=== PATIENT | female | born 1960 | race Caucasian/White ===

== ENCOUNTER 2024-08-25 13:36 | Inpatient (IN) | payer MEDICAID, SELFPAY ==
[2024-08-25 13:56] VITALS: BP 137/98; PULSE 90; RESP 20; TEMP 36.6; O2SAT 93; BMI 29.0
--- NOTE | 2024-08-25 14:32 | XR_ITS ---
Examination: Abdomen sonogram, Limited Date and time of exam: August 25, 2024 1441 hours INDICATIONS: Epigastric pain nausea vomiting beginning today Technique: Real-time esteban scale transabdominal sonographic images of the upper abdomen obtained. Findings: Multiple gallstones, the largest 19 mm Gallbladder sludge Gallbladder wall 0.3 cm no edema Common bile duct 0.2 cm Pancreatic head 3.0 cm Liver 19.4 cm benign cysts, lobular contour fatty infiltration no solid liver lesions Normal hepatopedal portal venous flow Patent IVC IMPRESSION: Cholelithiasis, negative for cholecystitis Hepatomegaly, suspect primary hepatocellular disease
--- NOTE | 2024-08-25 14:34 | EDRME_ITS ---
Rapid Medical Screening Exam [facility] Arrival date/time: 08/25/24 13:36 64-year-old female with no known medical history presents to the emergency room with a chief complaint of chest pain epigastric pain and right upper quadrant pain x 2 days. Patient states has been vomiting and this morning was waking up by her chest pain. I have greeted and performed a focused initial assessment of this patient. A comprehensive ED assessment and evaluation of the patient, analysis of all test results, and completion of the medical decision making process will be conducted by additional ED providers. Chief Complaint: Flu Like Symptoms Time Seen by Provider: 08/25/24 13:55 Vital signs: Vital Signs Temperature 97.8 F 08/25/24 13:56 Pulse Rate 90 08/25/24 13:56 Respiratory Rate 20 08/25/24 13:56 Blood Pressure 137/98 H 08/25/24 13:56 Pulse Oximetry (%) 93 L 08/25/24 13:56 Oxygen Delivery Method Room Air 08/25/24 13:56 Vital signs reviewed by provider: Yes
--- NOTE | 2024-08-25 14:35 | XR_ITS ---
Examination: PA lateral chest 2 views TECHNIQUE: Upright PA lateral chest 2 views Exam date and time: August 25, 2024 1533 hours INDICATIONS: Smoking history 50 years with vomiting yesterday. FINDINGS: Normal heart size Accentuation bronchovascular markings. No lobar pneumonia Prominent right paratracheal region Moderate osteopenia IMPRESSION: Prominent right paratracheal region Consider CT chest post intravenous contrast follow-up to exclude right mediastinal lymphadenopathy
[2024-08-25 15:27] LABS: Collection Type, Urine Clean Catch
[2024-08-25] MEDS: ONDANSETRON ODT 4 MG TABRAP PO (15:54)
[2024-08-25] MEDS: HYDROcodone/APAP 5/325 TABLET 1 TAB PO (15:55)
[2024-08-25] MEDS: MG HYD/AL HYD/SIME (Maalox Reg) SUSP 30 ML UDC PO (15:55)
[2024-08-25 15:57] LABS: Bacteria,Urine Rare; Bilirubin,Urine 2+ (Negative); Blood,Urine Negative (Negative); Color,Urine Drk-Yellow (Lt Yel-Yel); Glucose, Urine Trace (Negative); Ketones,Urine 2+ (Negative); Leukocyte Esterase,Urine Negative (Negative); Nitrite,Urine Negative (Negative); Protein,Urine 1+ (Neg - Trace); RBC,Urine 2 /hpf (0-3); Specific Gravity,Urine 1.026 (1.001-1.035); Squamous Epithelial Cell,Urine 1 /hpf (0-5); WBC,Urine 1 /hpf (0-5)
[2024-08-25 16:25] LABS: Clarity,Urine Hazy (Clear/Hazy)
[2024-08-25 16:27] LABS: Basophils % (Auto) 0 % (0-2.5); Eosinophils % (Auto) 0 % (0-10); Hematocrit 52.9 % (36.0-46.0); Hemoglobin 18.2 g/dL (12.0-16.0); Immature Granulocytes % (Auto) 0 % (0-0); Immature Granulocytes Auto 0.04 Thou/mm3 (0.00-0.00); Lymphocytes % (Auto) 11 % (10-50); Mean Corpuscular HGB Conc 34.4 g/dl (31.0-37.0); Mean Corpuscular Hemoglobin 32.3 pg (25.0-35.0); Mean Corpuscular Volume 94 fL (80-100); Monocytes # (Auto) 0.4 Thou/mm3 (0.0-0.8); Monocytes % (Auto) 4 % (0-12); Neutrophils % (Auto) 85 % (37-80); Nucleated Red Blood Cell % 0 /100 WBC (0); Platelet Count 229 Thou/mm3 (140-440); RDW Standard Deviation 51.3 fL (36.4-46.3); Red Blood Count 5.64 Miln/mm3 (4.00-5.20); White Blood Count 9.5 Thou/mm3 (3.6-11.0)
[2024-08-25 16:46] LABS: B-Type Natriuretic Peptide 26 pg/mL (0-100)
[2024-08-25 16:55] LABS: Alanine Aminotransferase 471 U/L (10-49); Albumin, Serum 4.8 gm/dL (3.4-4.8); Albumin/Globulin Ratio 1.7 (1.2-2.2); Alkaline Phosphatase 186 U/L (46-116); Anion Gap 7 (7-16); Aspartate Amino Transferase 451 U/L (0-34); BUN/Creatinine Ratio 29 Ratio (12-20); Bilirubin,Total 2.1 mg/dL (0.3-1.2); Blood Urea Nitrogen 26 mg/dL (9-23); Carbon Dioxide 30.1 mMol/L (20.0-31.0); Chloride 102 mMol/L (98-107); Creatinine (Component) 0.9 mg/dL (0.6-1.3); Estimated Creatinine Clearance 70.3 mL/min (>60); Globulin 2.8 gm/dL (2.3-3.5); Glucose 120 mg/dL (74-106); Lipase 1392 U/L (12-53); Osmolality,Calculated 283 (275-295); Sodium 139 mMol/L (136-145); Total Protein 7.6 gm/dL (5.7-8.2); Troponin I < 0.002 ng/mL (0.0-0.045); eGFR > 60 See Note
--- NOTE | 2024-08-25 18:18 | XR_ITS ---
Examination: CT abdomen with intravenous contrast CT pelvis with intravenous contrast 2-D coronal reconstructions 2-D sagittal reconstructions Date and time of exam:August 25, 2024 1018 hrs. Indications: Vomiting abdominal pain beginning 2 days ago. CTDI: vol (mGy) 10.14 DLP: (mGycm) 594 Technique: Multiple axial sections of the abdomen and pelvis have been obtained. 64 slice high-resolution scanner used. 3 mm axial sections have been obtained, post intravenous injection 60 cc Isovue-370 2-D sagittal, coronal reconstructions obtained. Low dose protocols were performed. One or more of the following dose reduction techniques were used; automated exposure control, adjustment of the mA and/or KV according to patient size, use of iterative reconstruction technique. Findings: Multiple benign liver cysts Spleen is not enlarged Cholelithiasis Gallbladder wall appears mildly thickened Suspicious for mild edema surrounding the pancreas Multiple small renal cysts No hydronephrosis Abdominal aortic calcification no aneurysmal dilatation No pericecal inflammatory change Irregular uterine fundus with multiple uterine masses Urinary bladder intact Moderate osteopenia Impression: Cholelithiasis Gallbladder wall appears thickened Suspicious for mild pancreatitis, consider MRCP follow-up Recommend pelvic sonography follow-up to assess multiple uterine fundal masses
[2024-08-25 19:15] LABS: Cardiac Risk Estimate 1.9 RATIO (3.7-5.6); Cholesterol 217 mg/dL (132-200); HDL Cholesterol 117 mg/dL (40-60); LDL Cholesterol,Calculated 79 mg/dL (0-130); Triglycerides 105 mg/dL (30-150)
[2024-08-25 20:10] VITALS: BP 132/87; PULSE 93; RESP 18; O2SAT 95
[2024-08-25] MEDS: HYDROmorphone INJ 2 MG/ML VIAL 1 MG IVP (21:08)
[2024-08-25] MEDS: SODIUM CHLORIDE 0.9% 1000 ML 1,000 ML 999 ML IV (21:09)
--- NOTE | 2024-08-25 21:16 | PD.EDABDPN ---
ED Abdominal Pain RME/HPI General Chief Complaint: Flu Like Symptoms Stated complaint: Cough, vomiting, chest pain Time seen by provider: 08/25/24 13:55 Arrival date/time: 08/25/24 13:36 RME / HPI RME / HPI narrative: 64-year-old female patient with no significant medical history, except for chronic smoking, came in for evaluation regarding epigastric pain. Onset of symptoms since 2 days, it comes and goes getting worse this morning, severity severe, associated with vomiting. Pain radiates to the chest. Patient denies any fever denies any diarrhea constipation denies any other complaints no medication was taken prior to arrival. Related Data Previous Rx's ?Medication ?Instructions ?Recorded hydrocodone 5 mg-acetaminophen 325 1 tab PO Q8H Cellulitis #10 tabs 02/23/21 mg tablet methylprednisolone 4 mg tablets in See Rx Instructions .Route 02/23/21 a dose pack (Medrol (Caleb)) .COMPLEX #21 tabs clindamycin HCl 300 mg capsule 300 mg PO TID #21 caps 10/01/23 tramadol 50 mg tablet 50 mg PO TID PRN pain #20 tabs 10/01/23 Allergies Allergy/AdvReac Type Severity Reaction Status Date / Time No Known Allergies Allergy Verified 08/25/24 13:43 Review of Systems Review of Systems Narrative Review of Systems: Review of system reviewed and within normal limits except mentioned in HPI Course Course Course Narrative: VITAL SIGNS: Reviewed. GENERAL APPEARANCE: Alert and interactive, follows commands, no acute distress, HEAD AND FACE: Non-traumatic. ENT: PERRL, pink conjunctivitis, eyelid no trauma, Mucous membrane moist. NECK: Supple, nontender, no nuchal rigidity. CHEST: No tenderness, no crepitus, no paradoxical movement, no retractions. LUNGS: Clear, well ventilated, symmetric, no rales, no wheezing, no ronchi, no stridor, good breath sounds bilaterally. HEART: Regular rate, regular rhythm, no murmur, no gallops. ABDOMEN: Soft, positive bowel sounds, nondistended, no guarding, right upper quadrant tenderness, no rebound, no masses, RECTAL: Deferred. GENITAL: Deferred. NEUROLOGICAL: Gross motor function intact sensory function intact, Appropriate for age. MUSCULOSKELETAL: low back nontender, full range of motion. EXTREMITIES: Nontender, full range of motion. SKIN: Color pink, dry, no rash, no lacerations, no abrasions, no contusions. LYMPHATICS: Deferred. Quality Measures none Orders Category Date Time Status Bedside COVID-19 Antigen Test NOW Care 08/25/24 14:35 Active Bedside Influenza A&B Antigen Test NOW Care 08/25/24 14:35 Completed COVID-19 Screening Questionnaire NOW Care 08/26/24 11:[address] Screening NOW Care 08/25/24 18:18 Active Decision to Admit X1 Care 08/26/24 11:41 Active EKG (ED ONLY) *Do not use* NOW Care 08/25/24 13:45 Completed MRI Screening NOW Care 08/25/24 21:14 Active NPO NOW Care 08/26/24 06:49 Active Diet NPO (NOW) Diet 08/26/24 06:[address] abdomen pelvis w con Stat Exams 08/25/24 18:18 Completed EKG (ED Only) Stat Exams 08/25/24 13:45 Ordered MR MRCP Stat Exams 08/26/24 Completed US gall bladder Stat Exams 08/25/24 14:32 Completed XR chest 2V Stat Exams 08/25/24 14:35 Completed BNP [B-Type Natriuretic Peptide] Stat Lab 08/25/24 16:10 Completed CBC Stat Lab 08/25/24 16:10 Completed CMP [Comprehensive Metabolic Panel] Stat Lab 08/25/24 16:10 Completed Lipase Stat Lab 08/25/24 16:10 Completed Lipid Panel Stat Lab 08/25/24 16:10 Completed Troponin I Stat Lab 08/25/24 16:10 Completed UA [Urinalysis] Stat Lab 08/25/24 15:08 Completed Urine Culture Stat Lab 08/25/24 15:08 Received HYDROcodone*/APAP 5/325 [[place] 5/325] Med 08/25/24 14:32 Discontinued 1 tab PO X1 ONE HYDROmorphone INJ [Dilaudid Inj] Med 08/25/24 20:58 Discontinued 1 mg IVP X1 ONE HYDROmorphone INJ [Dilaudid Inj] Med 08/26/24 04:59 Discontinued 1 mg IVP X1 ONE Ketorolac Inj [Toradol Inj] Med 08/26/24 00:32 Discontinued 30 mg IVP X1 ONE Morphine Inj Med 08/26/24 00:32 Discontinued 4 mg IVP X1 ONE Morphine Inj Med 08/26/24 09:19 Discontinued 4 mg IVP X1 ONE Ondansetron Inj [Zofran Inj] Med 08/26/24 00:32 Discontinued 4 mg IV X1 ONE Ondansetron Inj [Zofran Inj] Med 08/26/24 09:19 Discontinued 4 mg IV X1 ONE Ondansetron Odt [Zofran Odt] Med 08/25/24 14:32 Discontinued 4 mg PO X1 ONE Piper/Tazo 3.375 gm [Zosyn] Med 08/26/24 06:00 Active 3.375 gm in 50 ml IV Q8HR Piper/Tazo 3.375 gm [Zosyn] Med 08/25/24 21:30 Discontinued 3.375 gm in 50 ml IV X1 Sodium Chloride 0.9% 1000 ml [Ns] 1,000 ml Med 08/26/24 06:48 Active IV 125 mls/hr Sodium Chloride 0.9% 1000 ml [Ns] 1,000 ml Med 08/25/24 20:58 Discontinued IV 999 mls/hr mg Hyd/Al Hyd/Fabien Susp [Maalox Susp] Med 08/25/24 14:32 Discontinued 30 ml PO X1 ONE Vital Signs Vital signs: Vital Signs Temperature 97.8 F 08/25/24 13:56 Pulse Rate 90 08/25/24 13:56 Respiratory Rate 20 08/25/24 13:56 Blood Pressure 137/98 H 08/25/24 13:56 Pulse Oximetry (%) 93 L 08/25/24 13:56 Oxygen Delivery Method Room Air 08/25/24 13:56 Abdominal Pain [facility] Narrative [facility] Narrative:: 64-year-old female patient with no significant medical history, except for chronic smoking, came in for evaluation regarding epigastric pain. Onset of symptoms since 2 days, it comes and goes getting worse this morning, severity severe, associated with vomiting. Pain radiates to the chest. Patient denies any fever denies any diarrhea constipation denies any other complaints no medication was taken prior to arrival. Laboratory workup is significant for lipase of 1392, CBC no leukocytosis, CMP significant for 2.1 total bili, AST of 451, ALT of 471, alkaline phos of 186. Lipid profile unremarkable. Urinalysis no UTI ultrasound the gallbladder showed cholelithiasis negative for cholecystitis. CT scan of the abdomen pelvis showed Cholelithiasis Gallbladder wall appears thickened Suspicious for mild pancreatitis, consider MRCP follow-up Recommend pelvic sonography follow-up to assess multiple uterine fundal masses MRCP showed Cholelithiasis, negative for cholecystitis No common hepatic or common bile duct stones Mild acute pancreatitis Patient received IV fluids for hydration, IV Zosyn, and multiple rounds of morphine and Dilaudid and [place]. Currently patient still having pain, 5 out of 10. No fever noted in the ED for the last 21 hours. Spoke with hospitalist, who admitted the patient. Patient data External records reviewed:: None Clinical information provided by:: patient Social determinants that could affect healthcare access:: none Patient has the following chronic illnesses:: None How is presenting disease/condition affected by chronic disease/condition?: no chronic disease Evaluation data The following diagnostics were reviewed and interpreted by me:: lab results and radiology exam(s) Lab and/or radiology exams considered but not ordered:: None Interpretation Summary: See results in MDM, EKG shows sinus rhythm, ventricular rate of 86 bpm, no ST segment elevation or depression noted. Medications / Prescriptions Medications or Prescriptions considered but not ordered:: None Medication administrations:: Medication Administration History Piperacillin/Tazobactam/Dextrose (Zosyn) 3.375 gm in 50 mls @ 12.5 mls/hr IV Q8HR [id number] Stop: 09/02/24 05:59 Last Infusion: 08/26/24 10:26 Dose: Infused Documented By: Admin: 08/26/24 06:41 Dose: 12.5 mls/hr Documented By: EF Sodium Chloride (Ns) 1,000 mls @ 125 mls/hr IV .Q8H ONE Stop: 08/26/24 14:47 Last Infusion: 08/26/24 10:09 Dose: 0 mls/hr Documented By: Admin: 08/26/24 09:33 Dose: 125 mls/hr Documented By: DB Discontinued Medications Hydrocodone Bitart/Acetaminophen (Hydrocodone/Apap 5/325 Tablet) 1 tab PO X1 ONE Stop: 08/25/24 14:33 Last Admin: 08/25/24 15:55 Dose: 1 tab Documented By: OA Al Hydrox/Mg Hydrox/Simethicone (Mg Hyd/Al Hyd/Fabien (Maalox Reg) Susp 30 Ml Udc) 30 ml PO X1 ONE Stop: 08/25/24 14:33 Last Admin: 02/14/25 15:55 Dose: 30 ml Documented By: OA Hydromorphone HCl (Hydromorphone Inj 2 Mg/Ml Vial) 1 mg IVP X1 ONE Stop: 08/25/24 20:59 Last Admin: 08/25/24 21:08 Dose: 1 mg Documented By: TC Hydromorphone HCl (Hydromorphone Inj 2 Mg/Ml Vial) 1 mg IVP X1 ONE Stop: 08/26/24 05:00 Last Admin: 08/26/24 05:32 Dose: 1 mg Documented By: EF Sodium Chloride (Ns) 1,000 mls @ 999 mls/hr IV .Q1H1M ONE Stop: 08/25/24 21:58 Last Infusion: 08/25/24 22:10 Dose: Infused Documented By: Admin: 08/25/24 21:09 Dose: 999 mls/hr Documented By: TC Piperacillin/Tazobactam/Dextrose (Zosyn) 3.375 gm in 50 mls @ 100 mls/hr IV X1 ONE Stop: 08/25/24 21:59 Last Infusion: 08/25/24 23:08 Dose: Infused Documented By: Admin: 08/25/24 22:38 Dose: 100 mls/hr Documented By: EF Ketorolac Tromethamine (Ketorolac Inj 30 Mg/Ml Vial) 30 mg IVP X1 ONE Stop: 08/26/24 00:33 Last Admin: 08/26/24 00:52 Dose: 30 mg Documented By: EF Morphine Sulfate (Morphine Sulf Inj 10 Mg/Ml Vial) 4 mg IVP X1 ONE Stop: 08/26/24 00:33 Last Admin: 08/26/24 00:52 Dose: 4 mg Documented By: EF Morphine Sulfate (Morphine Sulf Inj 10 Mg/Ml Vial) 4 mg IVP X1 ONE Stop: 08/26/24 09:20 Last Admin: 08/26/24 09:30 Dose: 4 mg Documented By: DB Comments: Ondansetron HCl (Ondansetron Odt 4 Mg Tabrap) 4 mg PO X1 ONE; Protocol Stop: 08/25/24 14:33 Last Admin: 08/25/24 15:54 Dose: 4 mg Documented By: OA Ondansetron HCl (Ondansetron Inj 2 Mg/Ml Inj 2 Ml) 4 mg IV X1 ONE; Protocol Stop: 08/26/24 00:33 Last Admin: 08/26/24 00:52 Dose: 4 mg Documented By: EF Ondansetron HCl (Ondansetron Inj 2 Mg/Ml Inj 2 Ml) 4 mg IV X1 ONE; Protocol Stop: 08/26/24 09:20 Last Admin: 08/26/24 09:29 Dose: 4 mg Documented By: DB IV fluids, IV Dilaudid IV morphine Marengo and Zofran IV Zosyn Toradol Consultations Consultation(s) initiated? (list below): No Diagnosis Differential diagnosis abdominal pain: abdominal pain, diverticulitis and pancreatitis Most likely diagnosis given after review of the tests above:: Gallstone pancreatitis acute Admission Indicated Admission indicated?: indicated Explain why admission is indicated or not indicated:: For further management Admission Request Was there a request for admission?: Yes Admission Attestation Admission request attestation: Discussed case with [Dr. Hansen] from Hospitalist service regarding admission. Discussed patients ED course, exam findings, labs, and radiology results. The Hospitalist [agrees] to accept the patient for admission. Disposition Plan Disposition Plan: Admit Discharge Plan Plan Patient Disposition: Admit Acute Care w/in Hospital Disposition Comment: Stable Prescriptions/Referrals Prescriptions/Med Rec: No Action hydrocodone-acetaminophen 5-325 mg tablet 1 tab PO Q8H MDD 3 tabs Qty: 10 0RF methylprednisolone [Medrol (Caleb)] 4 mg tablets,dose pack See Rx Instructions .ROUTE .COMPLEX Qty: 21 0RF Rx Instructions: 1 dose pack as directed tramadol 50 mg tablet 50 mg PO TID PRN (Reason: pain) Qty: 20 0RF clindamycin HCl 300 mg capsule 300 mg PO TID Qty: 21 0RF Referrals: Pablo Alvarez PA-C [Primary Care Provider] - In 1 week Problem List Clinical Impression: Acute gallstone pancreatitis Patient/Caregiver Discharge Instructions Print Language: Swedish Stand Alone Forms: Luciana Award Info., Patient Portal Info Letter
[2024-08-25] MEDS: PIPER/TAZO 3.375 GM 3.375 GM/50 ML BAG IV (22:38)
--- NOTE | 2024-08-25 23:19 | EDNOTE_ITS ---
Emergency Room Addendum <Eli Moore - Last Filed: 08/26/24 03:28> Addendum Narrative: I took over the care from Mehran Bernardo NP at 11 PM on 08/25/2024, see his notes for complete H&P and ED course. I reviewed all diagnostic test results. Patient received Morphine, Zofran, and Toradol due to her abdominal pain. Patient remained clinically stable throughout my shift. At 0600, care is transferred to Dr. Giles pending [facility]. <Hernandez Luis MD - Last Filed: 08/26/24 05:27> Addendum Narrative: I took over the care from Mehran Bernardo NP at 11 PM on 08/25/2024, see his notes for complete H&P and ED course. Patient received Morphine, Zofran, Toradol, and Dilaudid when she needed more help. Otherwise, patient remained clinically stable throughout my shift. At 0600 on 08/26/2024, care is transferred to Dr. Giles pending [facility]. Hernandez Luis MD
[2024-08-26] VITALS (8 sets, daily range): BP systolic 115–142; BP diastolic 81–94; PULSE 90–100; RESP 15–24; TEMP 36.3–36.9; O2SAT 88–98; BMI 30.1; BMI 29.0
--- NOTE | 2024-08-26 | XR_ITS ---
MRI abdomen, without contrast. MRCP Date and time of exam: August 24, 2024 at 0802 hrs. Indications: Abdominal pain nausea vomiting beginning 2 days ago, with elevated total bilirubin Technique: Multiple axial and coronal images of the abdomen have been obtained with the Siemens 1.5T MRI scanner. Images obtained included T1 weighted transverse images, T2-weighted transverse images, T2-weighted transverse images fat-suppressed, T2 weighted haste fat suppressed transverse images, T1 weighted images, in and out of phase images, T2-weighted coronal images, breath hold, T2 weighted haze coronal images as well as T2 weighted coronal thick slab images, MRCP. Findings: Multiple liver cysts Multiple gallstones No definite gallbladder wall thickening Common bile duct 8 mm Pancreatic duct is not dilated No definite common hepatic or common bile duct stones Mild edema surrounding the pancreas 34 mm upper pole left renal cyst smaller bilateral renal cysts No splenomegaly Aorta normal size Impression: Cholelithiasis, negative for cholecystitis No common hepatic or common bile duct stones Mild acute pancreatitis
[2024-08-26] MEDS: KETOROLAC INJ 30 MG/ML VIAL IVP (00:52)
[2024-08-26] MEDS: ONDANSETRON INJ 2 MG/ML INJ 2 ML 4 MG IV ×3 (00:52→22:28)
[2024-08-26] MEDS: MORPHINE SULF INJ 10 MG/ML VIAL 4 MG IVP ×2 (00:52→09:30)
[2024-08-26] MEDS: HYDROmorphone INJ 2 MG/ML VIAL 1 MG IVP ×4 (05:32→21:50)
[2024-08-26] MEDS: PIPER/TAZO 3.375 GM 3.375 GM/50 ML BAG IV ×3 (06:41→21:50)
--- NOTE | 2024-08-26 06:50 | EDNOTE_ITS ---
Emergency Room Addendum <Cristina Licona - Last Filed: 08/26/24 11:15> Addendum Narrative: 0600: Care assumed from Dr. Luis, the previous shift emergency physician. Past medical, surgical, social and family history reviewed. Vitals and home medications reviewed. I will assume the care of the patient at this time, pending MRCP. Please refer to the emergency department record for history and examination from initial visit.? Physical exam by me shows patient under no acute distress at this time. RADIOLOGY Procedure(s): MR MRCP Accession Number(s): [id number] cc: Mehran Bernardo [employer]; Pablo Alvarez PA-C; Parvez Scherer MD~ MRI abdomen, without contrast. MRCP Date and time of exam: August 24, 2024 at 0802 hrs. Indications: Abdominal pain nausea vomiting beginning 2 days ago, with elevated total bilirubin Technique: Multiple axial and coronal images of the abdomen have been obtained with the Siemens 1.5T MRI scanner. Images obtained included T1 weighted transverse images, T2-weighted transverse images, T2-weighted transverse images fat-suppressed, T2 weighted haste fat suppressed transverse images, T1 weighted images, in and out of phase images, T2-weighted coronal images, breath hold, T2 weighted haze coronal images as well as T2 weighted coronal thick slab images, MRCP. Findings: Multiple liver cysts Multiple gallstones No definite gallbladder wall thickening Common bile duct 8 mm Pancreatic duct is not dilated No definite common hepatic or common bile duct stones Mild edema surrounding the pancreas 34 mm upper pole left renal cyst smaller bilateral renal cysts No splenomegaly Aorta normal size Impression: Cholelithiasis, negative for cholecystitis No common hepatic or common bile duct stones Mild acute pancreatitis Dictated By: Parvez Scherer MD <Alfonso Giles MD - Last Filed: 08/26/24 11:21> Addendum Narrative: 0600: Care assumed from Dr. Luis, the previous shift emergency physician. Past medical, surgical, social and family history reviewed. Vitals and home medications reviewed. I will assume the care of the patient at this time, pending MRCP. Please refer to the emergency department record for history and examination from initial visit.? Physical exam by me shows patient under no acute distress at this time. RADIOLOGY Procedure(s): MR MRCP Accession Number(s): [id number] cc: Mehran Bernardo; Pablo Alvarez PA-C; Parvez Scherer MD~ MRI abdomen, without contrast. MRCP Date and time of exam: August 24, 2024 at 0802 hrs. Indications: Abdominal pain nausea vomiting beginning 2 days ago, with elevated total bilirubin Technique: Multiple axial and coronal images of the abdomen have been obtained with the Siemens 1.5T MRI scanner. Images obtained included T1 weighted transverse images, T2-weighted transverse images, T2-weighted transverse images fat-suppressed, T2 weighted haste fat suppressed transverse images, T1 weighted images, in and out of phase images, T2-weighted coronal images, breath hold, T2 weighted haze coronal images as well as T2 weighted coronal thick slab images, MRCP. Findings: Multiple liver cysts Multiple gallstones No definite gallbladder wall thickening Common bile duct 8 mm Pancreatic duct is not dilated No definite common hepatic or common bile duct stones Mild edema surrounding the pancreas 34 mm upper pole left renal cyst smaller bilateral renal cysts No splenomegaly Aorta normal size Impression: Cholelithiasis, negative for cholecystitis No common hepatic or common bile duct stones Mild acute pancreatitis Dictated By: Parevz Scherer MD 11:20 AM, nurse enmanuelitionella Bernardo is here and volunteered to take the patient back to his service. The patient is signed out to him
--- NOTE | 2024-08-26 08:03 | PC.NURSE ---
member of technical staff at bedside requesting assistance with removing patient jewelry. Nurse assisted with removal of earrings per request of patient. All jewelry placed in cup at bedside. Patient able to sit in wheel chair with no distress.
[2024-08-26] MEDS: SODIUM CHLORIDE 0.9% 1000 ML 1,000 ML 125 ML IV (09:33)
[2024-08-26] MEDS: RINGERS LACTATED 1000 ML 1,000 ML 125 ML IV ×2 (12:39→21:51)
[2024-08-26] MEDS: ENOXAPARIN SOD INJ 40 MG/0.4 ML SYRINGE SC (12:42)
--- NOTE | 2024-08-26 13:01 | XR_ITS ---
Examination: CT chest with intravenous contrast 2-D sagittal and coronal reconstructions Exam date and time: August 26, 2024 1315 hrs. Indications: Prominent right mediastinum on chest x-ray yesterday CTDI:vol (mGy) 12.11 DLP: (mGycm) 457 Technique: Multiple axial sections of the thorax have been obtained. Sections have been obtained, 3 mm slice thickness. Mediastinal and lung density settings have been obtained. Intravenous contrast administered, 60 cc Isovue-370. 2-D sagittal, coronal images obtained. Low dose protocols were performed. One or more of the following dose reduction techniques were used; automated exposure control, adjustment of the mA and/or KV according to patient size, use of iterative reconstruction technique. Findings: 6 mm right thyroid nodule Thoracic aortic calcification no aneurysmal dilatation No pulmonary artery emboli No right mediastinal or other mediastinal lymphadenopathy Atelectasis versus early pneumonia at the lung bases with minimal bilateral pleural fluid Diffuse fatty infiltration throughout the liver with liver cysts Gallstones Mild free fluid in the abdomen No splenic enlargement No pancreatic mass 32 mm left renal cyst 2 mm left renal calculus The common bile duct measures 8 mm Impression: No mediastinal lymphadenopathy Mild pneumonia at the lung bases Cholelithiasis, prominent common bile duct, recommend hepatobiliary sonography follow-up
--- NOTE | 2024-08-26 13:02 | XR_ITS ---
Examination: Transvaginal ultrasound of the pelvis, complete Technique: Transvaginal sonographic images pelvis performed using esteban scale imaging Exam date and time: August 26, 20242022 hrs. Indications: CT pelvis August 25, 2024 multiple uterine fundal masses Findings: Uterus 5.8 x 3.5 x 3.7 cm Endometrial stripe 0.3 cm No uterine mass is confirmed Right ovary 1.5 cm arterial flow Left ovary 2.2 cm arterial flow Impression: . No testicular mass is confirmed
--- NOTE | 2024-08-26 15:48 | PD.RESHP ---
Documentation for date of: 08/26/24 [facility] History of Present Illness Chief complaint: abdominal, pancreatitis History of present illness: Diana Servin is 64 yr female with PMH of schizophrenia, depression, and insomnia. She presented to ED yesterday after experiencing acute abdominal pain that started on morning. Pain had worsened through the day, epigastric pain 10/10, radiated to bilateral abdomen. Pain was remitting in nature and would improve leaning forward. Also was experiencing nausea, vomiting. Patient underwent MRCP which showed Cholelithiasis, no bile duct obstruction. Patient also endorses bloody urine since past 1-2 weeks. Denies any dysuria. In ED, vitals were stable. Labs significant for hemoglobin 18, bilirubin 2.1, AST 451, ALT 471, lipase 1392. Normal WBC (9.5) and normal lacate. MRCP showed stones in the gallbladder but no active obstruction. CT a/p Showed cholelithiasis, gallbladder wall thickening, multiple uterine fundal masses. CT chest negative for any mediastinal LAD, 6 mm right thyroid nodule. Patient admitted for gallstone induced acute pancreatitis. Will start patient on fluids and pain management. PMH: as noted above PSH: none FamHx: non contributory Social: smoke approximately 10 cigarettes/day since 15 years old. Drinks socially. Allergies: NKDA Meds: Lurasidone 30 mg daily, trazodone 30 mg daily Review of Systems Constitutional Constitutional: Reports system reviewed and no additional complaints, except as documented Exam Vital Signs Temp Pulse Resp BP Pulse Ox O2 Del Method O2 Flow Rate 98.4 F 91 18 115/89 H 92 L Nasal Cannula 2 08/26/24 14:12 08/26/24 14:12 08/26/24 14:12 08/26/24 14:12 08/26/24 14:12 08/26/24 14:12 08/26/24 14:12 Narrative Exam General: Well kept, minor distress due to pain, cooperative HEENT: NCAT, No JVD noted. Mucosa moist. Pupils are equal and reactive to light bilaterally Cardiovascular: Normal S1 and S2. Regular rate and rhythm. Respiratory: Prominent inspiratory wheezing auscultated bilaterally, no crackles Abdomen: Soft, tender, not distended, normal bowel sounds. Skin: Warm to touch, dry, no rashes noted Musculoskeletal: No gross injuries. Able to move all 4 extremities. No pitting edema Neuro: Alert and oriented x3. No focal neuro deficits. Psych: Normal affect and mood Results: Labs 08/25/24 16:10 08/25/24 16:10 Labs: Short CBC 08/25/24 Range/Units 16:10 WBC 9.5 (3.6-11.0) Thou/mm3 Hgb 18.2 H (12.0-16.0) g/dL Hct 52.9 H (36.0-46.0) % Plt Count 229 (140-440) Thou/mm3 BMP 08/25/24 16:10 Sodium 139 Potassium 4.0 Chloride 102 Carbon Dioxide 30.1 BUN 26 H Creatinine 0.9 Glucose 120 H Calcium 10.0 Cardiac Enzymes 08/25/24 Range/Units 16:10 Troponin I < 0.002 (0.0-0.045) ng/mL Liver Function 08/25/24 Range/Units 16:10 Total Bilirubin 2.1 H (0.3-1.2) mg/dL AST 451 H (0-34) U/L ALT 471 H (10-49) U/L Alkaline Phosphatase 186 H (46-116) U/L Albumin 4.8 (3.4-4.8) gm/dL Urine 08/25/24 Range/Units 15:08 Urine Color Drk-Yellow A (Lt Yel-Yel) Urine Clarity Hazy (Clear/Hazy) Urine pH 6.0 (5.0-7.0) Ur Specific [place] 1.026 (1.001-1.035) Urine Protein 1+ A (Neg - Trace) Urine Glucose (UA) Trace (Negative) Quality Measures Quality Measures none Medications Home Medications and Allergies Allergies Allergy/AdvReac Type Severity Reaction Status Date / Time No Known Allergies Allergy Verified 08/25/24 13:43 Visit Medications Acetaminophen (Acetaminophen 325 Mg Tablet) 650 mg PO Q6H PRN PRN Reason: Fever >101.5 Stop: 09/25/24 11:36 Acetaminophen (Acetaminophen 325 Mg Tablet) 650 mg PO Q6H PRN PRN Reason: PAIN SCALE 1-3 (mild Stop: 09/25/24 11:36 Hydrocodone Bitart/Acetaminophen (Hydrocodone/Apap 10/325 Tab) 1 tab PO Q4H PRN PRN Reason: PAIN SCALE 4-6 (Moderate Stop: 08/31/24 11:36 Enoxaparin Sodium (Enoxaparin Sod Inj 40 Mg/0.4 Ml Syringe) 40 mg SC QDAY VIKKI Stop: 09/09/24 11:44 Last Admin: 08/26/24 12:42 Dose: 40 mg Hydromorphone HCl (Hydromorphone Inj 2 Mg/Ml Vial) 1 mg IVP Q4HR PRN PRN Reason: PAIN SCALE 7-10 (Severe Stop: 08/31/24 12:26 Last Admin: 08/26/24 12:48 Dose: 1 mg Piperacillin/Tazobactam/Dextrose (Zosyn) 3.375 gm in 50 mls @ 12.5 mls/hr IV Q8HR VIKKI Stop: 09/02/24 05:59 Last Admin: 08/26/24 15:34 Dose: 12.5 mls/hr Lactated Ringer's (Lactated Ringers) 1,000 mls @ 125 mls/hr IV .Q8H [facility] Stop: 09/25/24 11:50 Last Admin: 08/26/24 12:39 Dose: 125 mls/hr Magnesium Hydroxide (Milk Of Magnesia Susp 30 Ml Udc) 30 ml PO QDAY PRN; Protocol PRN Reason: CONSTIPATION Stop: 09/25/24 11:36 Discontinued Medications Hydrocodone Bitart/Acetaminophen (Hydrocodone/Apap 5/325 Tablet) 1 tab PO X1 ONE Stop: 08/25/24 14:33 Last Admin: 08/25/24 15:55 Dose: 1 tab Al Hydrox/Mg Hydrox/Simethicone (Mg Hyd/Al Hyd/Fabien (Maalox Reg) Susp 30 Ml Udc) 30 ml PO X1 ONE Stop: 08/25/24 14:33 Last Admin: 08/25/24 15:55 Dose: 30 ml Hydromorphone HCl (Hydromorphone Inj 2 Mg/Ml Vial) 1 mg IVP X1 ONE Stop: 08/25/24 20:59 Last Admin: 08/25/24 21:08 Dose: 1 mg Hydromorphone HCl (Hydromorphone Inj 2 Mg/Ml Vial) 1 mg IVP X1 ONE Stop: 08/26/24 05:00 Last Admin: 08/26/24 05:32 Dose: 1 mg Sodium Chloride (Ns) 1,000 mls @ 999 mls/hr IV .Q1H1M ONE Stop: 08/25/24 21:58 Last Infusion: 08/25/24 22:10 Dose: Infused Piperacillin/Tazobactam/Dextrose (Zosyn) 3.375 gm in 50 mls @ 100 mls/hr IV X1 ONE Stop: 08/25/24 21:59 Last Infusion: 08/25/24 23:08 Dose: Infused Sodium Chloride (Ns) 1,000 mls @ 125 mls/hr IV .Q8H ONE Stop: 08/26/24 14:47 Last Infusion: 08/26/24 10:09 Dose: 0 mls/hr Lactated Ringer's (Lactated Ringers) 1,000 mls @ 150 mls/hr IV .Q6H40M VIKKI Stop: 08/27/24 14:24 Ketorolac Tromethamine (Ketorolac Inj 30 Mg/Ml Vial) 30 mg IVP X1 ONE Stop: 08/26/24 00:33 Last Admin: 08/26/24 00:52 Dose: 30 mg Morphine Sulfate (Morphine Sulf Inj 10 Mg/Ml Vial) 4 mg IVP X1 ONE Stop: 08/26/24 00:33 Last Admin: 08/26/24 00:52 Dose: 4 mg Morphine Sulfate (Morphine Sulf Inj 10 Mg/Ml Vial) 4 mg IVP X1 ONE Stop: 08/26/24 09:20 Last Admin: 08/26/24 09:30 Dose: 4 mg Ondansetron HCl (Ondansetron Odt 4 Mg Tabrap) 4 mg PO X1 ONE; Protocol Stop: 08/25/24 14:33 Last Admin: 08/25/24 15:54 Dose: 4 mg Ondansetron HCl (Ondansetron Inj 2 Mg/Ml Inj 2 Ml) 4 mg IV X1 ONE; Protocol Stop: 08/26/24 00:33 Last Admin: 08/26/24 00:52 Dose: 4 mg Ondansetron HCl (Ondansetron Inj 2 Mg/Ml Inj 2 Ml) 4 mg IV X1 ONE; Protocol Stop: 08/26/24 09:20 Last Admin: 08/26/24 09:29 Dose: 4 mg Assessment & Plan Plan Diana Servin is 64 yr female with PMH of schizophrenia, depression, and insomnia. MRCP showed stones in the gallbladder but no active obstruction. Patient admitted for gallstone induced acute pancreatitis. #Gallstone induced acute pancreatitis #Transaminitis #Hyperbilirubinemia #Elevated lipase Ultrasound gallbladderShowed cholelithiasis, negative for cholecystitis. CT A/P confirmed cholelithiasis with gallbladder thickening. MRCP showed stones in the gallbladder but no active obstruction. Bilirubin 2.1, AST 451, ALT 471, lipase 1392. ?Start maintenance fluid 125 cc/h LR ? 1 mg Dilaudid every 4 hours as needed ? Zofran 4 mg for nausea ? Monitor I's and O's ? Advance diet as tolerated #Uterine mass CT A/P shows irregular uterine fundus with multiple uterine masses Patient states that she is not aware of this finding. Agrees to have further workup done. Hematuria may be attributable to mass. -Transvaginal ultrasound pending #Right thyroid nodule 6mm nodule on CT chest with contrast -follow up outpatient #Hx schizophrenia ? Resume home medication 30 mg lurasidone #Hx depression #Hx insomnia ? 30 mg trazodone Health maintenance: Dispo: Fluids and pain meds for acute pancreatitis, DVT prophylaxis: Lovenox 40 daily CODE STATUS: Full code Diet: Advance as tolerated The patient's management plan was discussed with my attending physician Dr. Medina. Liz Lima, PGY-1 Attending Provider Attestation/Addendum I have discussed and was present for the essential components of the history, physical examination, diagnosis, and treatment plan with the resident. I agree with the patient's care as documented by the resident and amended herein by me. Juan Medina, DO. Patient seen and evaluated this AM. Patient admitted for likely gallstone induced pancreatitis versus alcohol induced however leaning more towards gallstones due to the increased transaminitis and T. bili, the stone is likely already passed considering unremarkable MRCP however gallstones were demonstrated on imaging. Will start the parents into on moderate fluids and pain control. An incidental finding was a uterine fundal mass which the patient was unaware, a TVUS was ordered. Imaging also demonstrated possible peritracheal lymphadenopathy however we did order a CT chest with contrast which did not show such findings. Will reconcile and resume home meds as appropriate and continue to monitor closely. Although this document has been carefully reviewed, there may still be some phonetic and other typographical errors. These errors are purely grammatical due to imperfections in the software program and should not be construed in any way to compromise the substance of the patient's medical care during this visit.
--- NOTE | 2024-08-26 22:22 | PC.NURSE ---
pt complaining of nausea, Dr. Napoles was made aware. New ordres for pt, see MAR.
[2024-08-27] VITALS (9 sets, daily range): BP systolic 102–129; BP diastolic 63–94; PULSE 77–103; RESP 16–24; TEMP 36–36.9; O2SAT 91–98
[2024-08-27] MEDS: HYDROmorphone INJ 2 MG/ML VIAL 1 MG IVP ×5 (02:41→21:17)
[2024-08-27] MEDS: PIPER/TAZO 3.375 GM 3.375 GM/50 ML BAG IV (05:15)
[2024-08-27] MEDS: RINGERS LACTATED 1000 ML 1,000 ML 125 ML IV ×3 (05:15→21:24)
[2024-08-27] MEDS: ONDANSETRON INJ 2 MG/ML INJ 2 ML 4 MG IV (05:15)
[2024-08-27 05:48] LABS: Basophils % (Auto) 0 % (0-2.5); Eosinophils % (Auto) 0 % (0-10); Hematocrit 46.4 % (36.0-46.0); Hemoglobin 15.2 g/dL (12.0-16.0); Immature Granulocytes % (Auto) 0 % (0-0); Immature Granulocytes Auto 0.06 Thou/mm3 (0.00-0.00); Lymphocytes # (Auto) 1.7 Thou/mm3 (1.0-4.8); Lymphocytes % (Auto) 12 % (10-50); Mean Corpuscular HGB Conc 32.8 g/dl (31.0-37.0); Mean Corpuscular Hemoglobin 32.1 pg (25.0-35.0); Mean Corpuscular Volume 98 fL (80-100); Monocytes # (Auto) 0.8 Thou/mm3 (0.0-0.8); Monocytes % (Auto) 6 % (0-12); Neutrophils # (Auto) 11.5 Thou/mm3 (1.8-7.7); Neutrophils % (Auto) 82 % (37-80); Nucleated Red Blood Cell % 0 /100 WBC (0); Platelet Count 231 Thou/mm3 (140-440); RDW Standard Deviation 53.6 fL (36.4-46.3); Red Blood Count 4.73 Miln/mm3 (4.00-5.20)
[2024-08-27 06:47] LABS: Alanine Aminotransferase 184 U/L (10-49); Albumin, Serum 4.2 gm/dL (3.4-4.8); Albumin/Globulin Ratio 1.6 (1.2-2.2); Alkaline Phosphatase 119 U/L (46-116); Anion Gap 11 (7-16); Aspartate Amino Transferase 48 U/L (0-34); BUN/Creatinine Ratio 30 Ratio (12-20); Bilirubin,Total 0.7 mg/dL (0.3-1.2); Blood Urea Nitrogen 18 mg/dL (9-23); Calcium 9.4 mg/dL (8.3-10.6); Calcium (Corrected) 9.4 mg/dL (8.5-10.1); Carbon Dioxide 27.5 mMol/L (20.0-31.0); Chloride 102 mMol/L (98-107); Creatinine (Component) 0.6 mg/dL (0.6-1.3); Estimated Creatinine Clearance 103.4 mL/min (>60); Globulin 2.6 gm/dL (2.3-3.5); Glucose 79 mg/dL (74-106); Osmolality,Calculated 280 (275-295); Potassium 3.6 mMol/L (3.4-5.1); Sodium 140 mMol/L (136-145); Total Protein 6.8 gm/dL (5.7-8.2); eGFR > 60 See Note
[2024-08-27] MEDS: ENOXAPARIN SOD INJ 40 MG/0.4 ML SYRINGE SC (09:13)
[2024-08-27] MEDS: NICOTINE PATCH 14 MG/24 HR PATCH.TD24 TOP (10:02)
[2024-08-27] MEDS: ALBUTEROL/IPRATROPIUM (Duoneb) RT SOL 3 ML NEBU INH (11:22)
[2024-08-27] MEDS: HYDROcodone/APAP 10/325 TAB PO (13:21)
--- NOTE | 2024-08-27 14:14 | ESPR_ITS ---
<Statement entered by Erica Mcdonnell MD - 08/27/24 16:02> I discussed with and supervised my co-resident involved in the care of this patient. I agree with the assessment and plan as documented above. Patient seen at bedside. Still has abdominal pain, tender to touch. Patient willing to try liquid food, requesting 7 up. LFTs improving on labs. Likely passed gallstone. Will continue IVF, advance diet as tolerated, and pain management. Anticipate discharge within 48 hours as advance diet and pain improves. Erica Mcdonnell MD PGY-3 Documentation for date of: 08/27/24 Subjective Subjective Interval history: Patient still having severe amount of pain. Receiving scheduled Rosser and Dilaudid. On maintenance IV fluids. Not yet able to tolerate p.o. Will try to advance to clear liquid diet today. Gave patient a dose of Toradol. LFTs downtrending. UA contaminated. Ultrasound without uterine mass. Exam Vital Signs Temp Pulse Resp BP Pulse Ox O2 Del Method O2 Flow Rate 97.4 F 99 24 H 120/81 92 L Nasal Cannula 2 08/27/24 12:00 08/27/24 12:00 08/27/24 12:00 08/27/24 12:00 08/27/24 12:00 08/27/24 12:00 08/27/24 11:24 Narrative Exam Constitutional: Appears uncomfortable secondary to pain Head: Normocephalic Eyes: no conjunctival injection , symmetrical lids. ENMT: Moist Mucous Membranes CVS: RRR, S1 and S2 present, no murmurs, rubs or gallops . RESP: Rhonchi throughout, no increased work of breathing, on room air GI: Soft, nondistended, extremely tender throughout MSK: No lower extremity edema Skin: Warm to touch, Dry. No bruising. Neuro: Alert and oriented Psych:Appropriate mood and affect. Objective Labs 08/27/24 04:33 08/27/24 04:33 Labs: Laboratory Results - last 24 hr 08/27/24 04:33 WBC 14.0 H D RBC 4.73 Hgb 15.2 D Hct 46.4 H MCV 98 MCH 32.1 MCHC 32.8 RDW Std Deviation 53.6 H Plt Count 231 Neut % (Auto) 82 H Lymph % (Auto) 12 [place] % (Auto) 6 Eos % (Auto) 0 Baso % (Auto) 0 Neut # (Auto) 11.5 H Lymph # (Auto) 1.7 [place] # (Auto) 0.8 Eos # (Auto) 0.0 Baso # (Auto) 0.0 Immature Gran # (Auto) 0.06 H Absolute Nucleated RBC 0.00 Immature Gran % 0 Nucleated RBC % 0 Sodium 140 Potassium 3.6 Chloride 102 Carbon Dioxide 27.5 Anion Gap 11 BUN 18 Creatinine 0.6 Estim Creat Clear Calc 103.4 eGFR > 60 BUN/Creatinine Ratio 30 H Glucose 79 Calculated Osmolality 280 Calcium 9.4 Corrected Calcium 9.4 Magnesium 2.0 Total Bilirubin 0.7 D AST 48 H ALT 184 H Alkaline Phosphatase 119 H D Total Protein 6.8 Albumin 4.2 D Globulin 2.6 Albumin/Globulin Ratio 1.6 Quality Measures Quality Measures none Assessment & Plan Assessment Current Active Medications: Generic Name Dose Route Start Last Admin Trade Name Freq PRN Reason Stop Dose Admin Acetaminophen 650 mg 08/26/24 11:37 Acetaminophen 325 Mg Tablet PO 09/25/24 11:36 Q6H PRN Fever >101.5 Acetaminophen 650 mg 08/26/24 11:37 Acetaminophen 325 Mg Tablet PO 09/25/24 11:36 Q6H PRN PAIN SCALE 1-3 (mild Hydrocodone Bitart/Acetaminophen 1 tab 08/26/24 11:37 08/27/24 13:21 Hydrocodone/Apap 10/325 Tab PO 08/31/24 11:36 1 tab Q4H PRN Administration PAIN SCALE 4-6 (Moderate Enoxaparin Sodium 40 mg 08/26/24 11:45 08/27/24 09:13 Enoxaparin Sod Inj 40 Mg/0.4 Ml Syringe SC 09/09/24 11:44 40 mg QDAY VIKKI Administration Hydromorphone HCl 1 mg 08/26/24 12:27 08/27/24 11:38 Hydromorphone Inj 2 Mg/Ml Vial IVP 08/31/24 12:26 1 mg Q4HR PRN Administration PAIN SCALE 7-10 (Severe Lactated Ringer's 1,000 mls @ 125 mls/hr 08/26/24 11:51 08/27/24 05:15 Lactated Ringers IV 09/25/24 11:50 125 mls/hr .Q8H VIKKI Administration Magnesium Hydroxide 30 ml 08/26/24 11:37 Milk Of Magnesia Susp 30 Ml Udc PO 09/25/24 11:36 QDAY PRN CONSTIPATION Protocol Nicotine 14 mg 08/27/24 09:45 08/27/24 10:02 Nicotine Patch 14 Mg/24 Hr Patch.Td24 TOP 09/26/24 09:44 14 mg QDAY VIKKI Administration Ondansetron HCl 4 mg 08/26/24 22:22 08/27/24 05:15 Ondansetron Inj 2 Mg/Ml Inj 2 Ml IV 09/25/24 22:21 4 mg Q6HR PRN Administration NAUSEA OR VOMITING Protocol Trazodone HCl 50 mg 08/26/24 21:00 08/26/24 21:51 Trazodone Hcl 50 Mg Tablet PO 09/25/24 20:59 Not Given HS VIKKI Plan Diana Servin is 64 yr female with PMH of schizophrenia, depression, and insomnia. MRCP showed stones in the gallbladder but no active obstruction. Patient admitted for gallstone induced acute pancreatitis. #Gallstone induced acute pancreatitis #Transaminitis?improving #Hyperbilirubinemia?resolved #Elevated lipase Ultrasound gallbladderShowed cholelithiasis, negative for cholecystitis. CT A/P confirmed cholelithiasis with gallbladder thickening. MRCP showed stones in the gallbladder but no active obstruction. Bilirubin 2.1, AST 451, ALT 471, lipase 1392-Labs now downtrending ?maintenance fluid 125 cc/h LR ? Dilaudid and Rosser every 4 hours as needed ? Zofran 4 mg for nausea ? Monitor I's and O's ? Advance diet as tolerated, advanced to CLD today #Tobacco use #Hypoxia Patient requiring 2 L via nasal cannula, desaturates to high 80s on room air History of smoking. Rhonchi on exam throughout. Patient denies feeling short of breath. ?Nicotine patches as needed ?DuoNebs every 6 hours #Uterine mass?resolved CT A/P shows irregular uterine fundus with multiple uterine masses Transvaginal ultrasound without uterine mass. #Right thyroid nodule 6mm nodule on CT chest with contrast -follow up outpatient #Hx schizophrenia ? Resume home medication 30 mg lurasidone #Hx depression #Hx insomnia ? 30 mg trazodone Health maintenance: Dispo: Fluids and pain meds for acute pancreatitis, DVT prophylaxis: Lovenox 40 daily CODE STATUS: Full code Diet: Advance as tolerated The patient's management plan was discussed with my attending physician Dr. Medina. Stuart Melendez DO, PGY1 Attending Provider Attestation/Addendum I have discussed and was present for the essential components of the history, physical examination, diagnosis, and treatment plan with the resident. I agree with the patient's care as documented by the resident and amended herein by me. Juan Medina DO. Patient seen and evaluated this AM. No acute events overnight, vital signs stable, patient afebrile, WBC 14, BMP largely unremarkable and liver enzymes markedly improved today with a T. bili of 0.7, AST 48, ALT 184 and alk phos 119.. Transvaginal ultrasound was negative for any mass, urine cultures negative, patient still has complaints of diffuse abdominal pain that is extremely tender to palpation especially in the epigastric region hence we will continue IVF at this time, 125 mL/h and advanced diets when the patient can tolerate. Although this document has been carefully reviewed, there may still be some phonetic and other typographical errors. These errors are purely grammatical due to imperfections in the software program and should not be construed in any way to compromise the substance of the patient's medical care during this visit.
[2024-08-27] MEDS: KETOROLAC INJ 30 MG/ML VIAL IVP (15:14)
--- NOTE | 2024-08-27 18:26 | PC.NURSE ---
Patient vomited after attempting clear liquid dinner tray.
[2024-08-27] MEDS: traZODone HCL 50 MG TABLET PO (21:17)
[2024-08-28] VITALS (11 sets, daily range): BP systolic 118–153; BP diastolic 76–97; PULSE 80–99; RESP 16–90; TEMP 36.1–36.6; O2SAT 90–97
[2024-08-28] MEDS: ONDANSETRON INJ 2 MG/ML INJ 2 ML 4 MG IV ×2 (01:48→22:38)
[2024-08-28] MEDS: HYDROmorphone INJ 2 MG/ML VIAL 1 MG IVP ×6 (01:49→22:38)
[2024-08-28] MEDS: ALBUTEROL/IPRATROPIUM (Duoneb) RT SOL 3 ML NEBU INH ×4 (02:50→19:54)
[2024-08-28] MEDS: RINGERS LACTATED 1000 ML 1,000 ML 125 ML IV ×3 (06:08→20:33)
[2024-08-28 07:06] LABS: Basophils % (Auto) 0 % (0-2.5); Eosinophils % (Auto) 0 % (0-10); Hemoglobin 14.7 g/dL (12.0-16.0); Immature Granulocytes % (Auto) 1 % (0-0); Immature Granulocytes Auto 0.06 Thou/mm3 (0.00-0.00); Lymphocytes # (Auto) 1.1 Thou/mm3 (1.0-4.8); Lymphocytes % (Auto) 11 % (10-50); Mean Corpuscular HGB Conc 32.7 g/dl (31.0-37.0); Mean Corpuscular Hemoglobin 31.7 pg (25.0-35.0); Mean Corpuscular Volume 97 fL (80-100); Monocytes # (Auto) 0.8 Thou/mm3 (0.0-0.8); Monocytes % (Auto) 8 % (0-12); Neutrophils # (Auto) 7.9 Thou/mm3 (1.8-7.7); Neutrophils % (Auto) 80 % (37-80); Nucleated Red Blood Cell % 0 /100 WBC (0); Platelet Count 176 Thou/mm3 (140-440); RDW Standard Deviation 51.7 fL (36.4-46.3); Red Blood Count 4.63 Miln/mm3 (4.00-5.20); White Blood Count 9.9 Thou/mm3 (3.6-11.0)
[2024-08-28 07:08] LABS: Alanine Aminotransferase 121 U/L (10-49); Albumin, Serum 3.9 gm/dL (3.4-4.8); Albumin/Globulin Ratio 1.6 (1.2-2.2); Alkaline Phosphatase 91 U/L (46-116); Anion Gap 9 (7-16); Aspartate Amino Transferase 28 U/L (0-34); BUN/Creatinine Ratio 30 Ratio (12-20); Bilirubin,Total 0.7 mg/dL (0.3-1.2); Blood Urea Nitrogen 15 mg/dL (9-23); Calcium 9.3 mg/dL (8.3-10.6); Calcium (Corrected) 9.4 mg/dL (8.5-10.1); Carbon Dioxide 31.5 mMol/L (20.0-31.0); Chloride 96 mMol/L (98-107); Creatinine (Component) 0.5 mg/dL (0.6-1.3); Estimated Creatinine Clearance 124.1 mL/min (>60); Globulin 2.4 gm/dL (2.3-3.5); Glucose 115 mg/dL (74-106); Magnesium 1.9 mg/dL (1.6-2.6); Osmolality,Calculated 273 (275-295); Potassium 3.8 mMol/L (3.4-5.1); Sodium 136 mMol/L (136-145); Total Protein 6.3 gm/dL (5.7-8.2); eGFR > 60 See Note
[2024-08-28] MEDS: NICOTINE PATCH 14 MG/24 HR PATCH.TD24 TOP (08:34)
[2024-08-28] MEDS: ACETAMINOPHEN 325 MG TABLET 650 MG PO (08:35)
[2024-08-28] MEDS: ENOXAPARIN SOD INJ 40 MG/0.4 ML SYRINGE SC (08:35)
[2024-08-28] MEDS: KETOROLAC INJ 30 MG/ML VIAL IVP (08:38)
--- NOTE | 2024-08-28 09:33 | ESPR_ITS ---
<Statement entered by Erica Mcdonnell MD - 08/28/24 12:58> I discussed with and supervised my co-resident involved in the care of this patient. I agree with the assessment and plan as documented above. Patient still complaining of abdominal pain and headache. Headache likely due to morphine. Encouraged patient to try norco instead of morphine. Still not tolerating all of CLD, endorses nausea. Will continue IVF and advance diet as tolerated. Erica Mcdonnell MD PGY-3 Documentation for date of: 08/28/24 Subjective Subjective Interval history: Patient seen and examined at bedside. No acute events overnight. Today patient complains of severe headache 10 out of 10. Will hold morphine and give IV ketorolac with acetaminophen. Most recent vomiting episode x 2 last night, states that it may be due to the headache as her abdominal pain is improving. Still having difficulty tolerating liquids. Leukocytosis improving 9.9, AST ALT downtrending. Advance diet as tolerated, pain medications as needed for pancreatitis. Exam Vital Signs Temp Pulse Resp BP Pulse Ox O2 Del Method O2 Flow Rate 97.0 F 93 19 118/76 90 L Nasal Cannula 2 08/28/24 07:58 08/28/24 07:58 08/28/24 07:58 08/28/24 07:58 08/28/24 07:58 08/28/24 07:58 08/28/24 07:58 Narrative Exam Constitutional: Appears uncomfortable secondary to pain Head: Normocephalic Eyes: no conjunctival injection , symmetrical lids. ENMT: Moist Mucous Membranes CVS: RRR, S1 and S2 present, no murmurs, rubs or gallops . RESP: Rhonchi throughout, no increased work of breathing, on 2LNC GI: Soft, nondistended, extremely tender throughout MSK: No lower extremity edema Skin: Warm to touch, Dry. No bruising. Neuro: Alert and oriented Psych:Appropriate mood and affect. Objective Labs 08/28/24 05:49 08/28/24 05:49 Labs: Laboratory Results - last 24 hr 08/28/24 05:49 WBC 9.9 RBC 4.63 Hgb 14.7 Hct 45.0 MCV 97 MCH 31.7 MCHC 32.7 RDW Std Deviation 51.7 H Plt Count 176 D Neut % (Auto) 80 Lymph % (Auto) 11 [place] % (Auto) 8 Eos % (Auto) 0 Baso % (Auto) 0 Neut # (Auto) 7.9 H Lymph # (Auto) 1.1 [place] # (Auto) 0.8 Eos # (Auto) 0.0 Baso # (Auto) 0.0 Immature Gran # (Auto) 0.06 H Absolute Nucleated RBC 0.00 Immature Gran % 1 H Nucleated RBC % 0 Sodium 136 Potassium 3.8 Chloride 96 L Carbon Dioxide 31.5 H Anion Gap 9 BUN 15 Creatinine 0.5 L Estim Creat Clear Calc 124.1 eGFR > 60 BUN/Creatinine Ratio 30 H Glucose 115 H Calculated Osmolality 273 L Calcium 9.3 Corrected Calcium 9.4 Magnesium 1.9 Total Bilirubin 0.7 AST 28 ALT 121 H Alkaline Phosphatase 91 D Total Protein 6.3 Albumin 3.9 Globulin 2.4 Albumin/Globulin Ratio 1.6 Quality Measures Quality Measures none Assessment & Plan Assessment Current Active Medications: Generic Name Dose Route Start Last Admin Trade Name Freq PRN Reason Stop Dose Admin Acetaminophen 650 mg 08/26/24 11:37 Acetaminophen 325 Mg Tablet PO 09/25/24 11:36 Q6H PRN Fever >101.5 Acetaminophen 650 mg 08/26/24 11:37 08/28/24 08:35 Acetaminophen 325 Mg Tablet PO 09/25/24 11:36 650 mg Q6H PRN Administration PAIN SCALE 1-3 (mild Hydrocodone Bitart/Acetaminophen 1 tab 08/26/24 11:37 08/27/24 13:21 Hydrocodone/Apap 10/325 Tab PO 08/31/24 11:36 1 tab Q4H PRN Administration PAIN SCALE 4-6 (Moderate Albuterol/Ipratropium 3 ml 08/27/24 19:00 08/28/24 06:51 Albuterol/Ipratropium (Duoneb) Rt Annia 3 Ml Nebu INH 09/26/24 18:59 3 ml Q6HRRT VIKKI Administration Enoxaparin Sodium 40 mg 08/26/24 11:45 08/28/24 08:35 Enoxaparin Sod Inj 40 Mg/0.4 Ml Syringe SC 09/09/24 11:44 40 mg QDAY VIKKI Administration Hydromorphone HCl 1 mg 08/26/24 12:27 08/28/24 06:01 Hydromorphone Inj 2 Mg/Ml Vial IVP 08/31/24 12:26 1 mg Q4HR PRN Administration PAIN SCALE 7-10 (Severe Lactated Ringer's 1,000 mls @ 125 mls/hr 08/26/24 11:51 08/28/24 06:08 Lactated Ringers IV 09/25/24 11:50 125 mls/hr .Q8H VIKKI Administration Magnesium Hydroxide 30 ml 08/26/24 11:37 Milk Of Magnesia Susp 30 Ml Udc PO 09/25/24 11:36 QDAY PRN CONSTIPATION Protocol Nicotine 14 mg 08/27/24 09:45 08/28/24 08:34 Nicotine Patch 14 Mg/24 Hr Patch.Td24 TOP 09/26/24 09:44 14 mg QDAY VIKKI Administration Ondansetron HCl 4 mg 08/26/24 22:22 08/28/24 01:48 Ondansetron Inj 2 Mg/Ml Inj 2 Ml IV 09/25/24 22:21 4 mg Q6HR PRN Administration NAUSEA OR VOMITING Protocol Trazodone HCl 50 mg 08/26/24 21:00 08/27/24 21:17 Trazodone Hcl 50 Mg Tablet PO 09/25/24 20:59 50 mg HS VIKKI Administration Plan Diana Servin is 64 yr female with PMH of schizophrenia, depression, and insomnia. MRCP showed stones in the gallbladder but no active obstruction. Patient admitted for gallstone induced acute pancreatitis. #Gallstone induced acute pancreatitis #Transaminitis?improving #Hyperbilirubinemia?resolved #Elevated lipase Ultrasound gallbladderShowed cholelithiasis, negative for cholecystitis. CT A/P confirmed cholelithiasis with gallbladder thickening. MRCP showed stones in the gallbladder but no active obstruction. Bilirubin 2.1, AST 451, ALT 471, lipase 1392-Labs now downtrending ?maintenance fluid 125 cc/h LR ? avoid Dilaudid and [place] if possible due to new onset headache -try pain meds IV ketorolac and acetaminophen ? Zofran 4 mg for nausea ? Monitor I's and O's ? Advance diet as tolerated #AHRF #Tobacco use Ddx: pain, opioids, hx smoking Patient requiring 2 L via nasal cannula, desaturates to high 80s on room air History of smoking. Rhonchi on exam throughout. Patient denies feeling short of breath. ?Nicotine patches as needed ?DuoNebs every 6 hours #Uterine mass?resolved CT A/P shows irregular uterine fundus with multiple uterine masses Transvaginal ultrasound without uterine mass. #Right thyroid nodule 6mm nodule on CT chest with contrast -follow up outpatient #Hx schizophrenia ? Resume home medication 30 mg lurasidone #Hx depression #Hx insomnia ? 30 mg trazodone Health maintenance: Dispo: Fluids and pain meds for acute pancreatitis, DVT prophylaxis: Lovenox 40 daily CODE STATUS: Full code Diet: Advance as tolerated The patient's management plan was discussed with my attending physician Dr. Medina. Liz Lima PGY1 Attending Provider Attestation/Addendum I have discussed and was present for the essential components of the history, physical examination, diagnosis, and treatment plan with the resident. I agree with the patient's care as documented by the resident and amended herein by me. Juan Medina DO. Patient seen and evaluated this AM. Vital signs stable, patient afebrile overnight, abdominal pain improved today however still present, will continue LR 125 for acute pancreatitis and advance diet as tolerated. Likely DC in 1 to 2 days pending continued improvement. Although this document has been carefully reviewed, there may still be some phonetic and other typographical errors. These errors are purely grammatical due to imperfections in the software program and should not be construed in any way to compromise the substance of the patient's medical care during this visit.
--- NOTE | 2024-08-28 12:33 | PC.SS ---
Diana Servin is a 64-year-old female admitted to Med-Surg for Pancreatitis. SS conducted bedside contact with the patient to complete initial assessment and to discuss discharge planning.? Patient confirmed demographic information. Patient identifies her Daughter Missy Mcmillan [phone] as her surrogate decision maker. Patient resides at home with her son. Pt states she is able to complete all ADL?s independently, no need for any source of DME. Pts PCP is Dr. Severo Alvarez and her pharmacy of choice is [facility]. DC options discussed and pt wishes to return home, no needs identified. Pts will provide transportation upon DC. No further intervention required at this time, social media assistant would be available to address any further concerns. DC Plan: Home Contact: Daughter Missy Mcmillan [phone] PCP: Lynn Alvarez
--- NOTE | 2024-08-28 16:03 | PC.SS ---
Rounding: Increase diet, continue fluids
[2024-08-28] MEDS: HYDROcodone/APAP 10/325 TAB PO (16:26)
[2024-08-28] MEDS: traZODone HCL 50 MG TABLET PO (20:33)
[2024-08-29] VITALS (18 sets, daily range): BP systolic 128–167; BP diastolic 80–101; PULSE 77–90; RESP 14–90; TEMP 36.1–37.2; O2SAT 90–98
[2024-08-29] MEDS: HYDROcodone/APAP 10/325 TAB PO ×3 (01:15→22:11)
[2024-08-29] MEDS: HYDROmorphone INJ 2 MG/ML VIAL 1 MG IVP ×5 (04:23→23:47)
[2024-08-29] MEDS: RINGERS LACTATED 1000 ML 1,000 ML 125 ML IV (04:28)
[2024-08-29 05:32] LABS: Basophils % (Auto) 0 % (0-2.5); Eosinophils # (Auto) 0.1 Thou/mm3 (0.0-0.5); Eosinophils % (Auto) 1 % (0-10); Hematocrit 38.9 % (36.0-46.0); Hemoglobin 12.9 g/dL (12.0-16.0); Immature Granulocytes % (Auto) 0 % (0-0); Immature Granulocytes Auto 0.01 Thou/mm3 (0.00-0.00); Lymphocytes # (Auto) 1.2 Thou/mm3 (1.0-4.8); Lymphocytes % (Auto) 16 % (10-50); Mean Corpuscular HGB Conc 33.2 g/dl (31.0-37.0); Mean Corpuscular Volume 97 fL (80-100); Monocytes # (Auto) 0.6 Thou/mm3 (0.0-0.8); Monocytes % (Auto) 8 % (0-12); Neutrophils # (Auto) 5.4 Thou/mm3 (1.8-7.7); Neutrophils % (Auto) 75 % (37-80); Nucleated Red Blood Cell % 0 /100 WBC (0); Platelet Count 165 Thou/mm3 (140-440); RDW Standard Deviation 49.8 fL (36.4-46.3); Red Blood Count 4.03 Miln/mm3 (4.00-5.20); White Blood Count 7.2 Thou/mm3 (3.6-11.0)
[2024-08-29 05:56] LABS: Alanine Aminotransferase 81 U/L (10-49); Albumin, Serum 3.6 gm/dL (3.4-4.8); Albumin/Globulin Ratio 1.7 (1.2-2.2); Alkaline Phosphatase 76 U/L (46-116); Anion Gap 7 (7-16); Aspartate Amino Transferase 20 U/L (0-34); BUN/Creatinine Ratio 25 Ratio (12-20); Bilirubin,Total 0.7 mg/dL (0.3-1.2); Blood Urea Nitrogen 10 mg/dL (9-23); Calcium (Corrected) 9.3 mg/dL (8.5-10.1); Carbon Dioxide 32.8 mMol/L (20.0-31.0); Chloride 97 mMol/L (98-107); Creatinine (Component) 0.4 mg/dL (0.6-1.3); Estimated Creatinine Clearance 155.1 mL/min (>60); Globulin 2.1 gm/dL (2.3-3.5); Glucose 103 mg/dL (74-106); Magnesium 1.7 mg/dL (1.6-2.6); Osmolality,Calculated 272 (275-295); Potassium 3.7 mMol/L (3.4-5.1); Sodium 137 mMol/L (136-145); Total Protein 5.7 gm/dL (5.7-8.2); eGFR > 60 See Note
[2024-08-29] MEDS: ALBUTEROL/IPRATROPIUM (Duoneb) RT SOL 3 ML NEBU INH ×2 (06:51→18:20)
[2024-08-29] MEDS: ENOXAPARIN SOD INJ 40 MG/0.4 ML SYRINGE SC (08:33)
[2024-08-29] MEDS: NICOTINE PATCH 14 MG/24 HR PATCH.TD24 TOP (08:35)
--- NOTE | 2024-08-29 10:46 | ESPR_ITS ---
<Statement entered by Erica Mcdonnell MD - 08/29/24 16:35> I discussed with and supervised my co-resident involved in the care of this patient. I agree with the assessment and plan as documented above. Patient seen and examined at bedside. Continues to complain of headache refractory to morphine and opioids, mildly relieved with NSAIDs. She states her head pain is worst than her abdominal pain. Patient admits she drinks 2 cups of coffee a day but because of her nausea and vomiting, hasn't had coffee. Patient may have component of caffeine withdrawal so will try coffee and if that will help her tolerate a clear liquid diet. Internal medicine team reached out to general surgery for cholecystectomy and patient was taken to OR today. Erica Mcdonnell MD PGY-3 Documentation for date of: 08/29/24 Subjective Subjective Interval history: Patient seen and examined at bedside. No acute events overnight. Continues to complain of headache and abdominal pain which as improved. Most recent vomiting episode last night again. But nothing comes out. Still having difficulty tolerating liquids. AST ALT downtrending. Will consult gen surgery for eval for possible cholecystectomy. Advance diet as tolerated, pain medications as needed for pancreatitis and headace. Exam Vital Signs Temp Pulse Resp BP Pulse Ox O2 Del Method O2 Flow Rate 96.9 F 80 14 128/86 H 94 L Nasal Cannula 2 08/29/24 07:55 08/29/24 07:55 08/29/24 07:55 08/29/24 07:55 08/29/24 07:55 08/29/24 07:55 08/29/24 07:55 Narrative Exam Constitutional: Appears uncomfortable secondary to pain Head: Normocephalic Eyes: no conjunctival injection , symmetrical lids. ENMT: dry Mucous Membranes CVS: RRR, S1 and S2 present, no murmurs, rubs or gallops . RESP: Rhonchi throughout, no increased work of breathing, on 2LNC GI: Soft, nondistended, extremely tender throughout MSK: No lower extremity edema Skin: Warm to touch, Dry. No bruising. Neuro: Alert and oriented Psych:Appropriate mood and affect. Objective Labs 08/30/24 04:31 08/30/24 04:31 Labs: Laboratory Results - last 24 hr 08/29/24 05:14 WBC 7.2 RBC 4.03 Hgb 12.9 Hct 38.9 MCV 97 MCH 32.0 MCHC 33.2 RDW Std Deviation 49.8 H Plt Count 165 Neut % (Auto) 75 Lymph % (Auto) 16 Perry % (Auto) 8 Eos % (Auto) 1 Baso % (Auto) 0 Neut # (Auto) 5.4 Lymph # (Auto) 1.2 Perry # (Auto) 0.6 Eos # (Auto) 0.1 Baso # (Auto) 0.0 Immature Gran # (Auto) 0.01 H Absolute Nucleated RBC 0.00 Immature Gran % 0 Nucleated RBC % 0 Sodium 137 Potassium 3.7 Chloride 97 L Carbon Dioxide 32.8 H Anion Gap 7 BUN 10 Creatinine 0.4 L Estim Creat Clear Calc 155.1 eGFR > 60 BUN/Creatinine Ratio 25 H Glucose 103 Calculated Osmolality 272 L Calcium 9.0 Corrected Calcium 9.3 Magnesium 1.7 Total Bilirubin 0.7 AST 20 ALT 81 H Alkaline Phosphatase 76 Total Protein 5.7 Albumin 3.6 Globulin 2.1 L Albumin/Globulin Ratio 1.7 Quality Measures Quality Measures none Assessment & Plan Assessment Current Active Medications: Generic Name Dose Route Start Last Admin Trade Name Freq PRN Reason Stop Dose Admin Acetaminophen 650 mg 08/26/24 11:37 Acetaminophen 325 Mg Tablet PO 09/25/24 11:36 Q6H PRN Fever >101.5 Acetaminophen 650 mg 08/26/24 11:37 08/28/24 08:35 Acetaminophen 325 Mg Tablet PO 09/25/24 11:36 650 mg Q6H PRN Administration PAIN SCALE 1-3 (mild Hydrocodone Bitart/Acetaminophen 1 tab 08/26/24 11:37 08/29/24 01:15 Hydrocodone/Apap 10/325 Tab PO 08/31/24 11:36 1 tab Q4H PRN Administration PAIN SCALE 4-6 (Moderate Albuterol/Ipratropium 3 ml 08/27/24 19:00 08/29/24 06:51 Albuterol/Ipratropium (Duoneb) Rt Annia 3 Ml Nebu INH 09/26/24 18:59 3 ml Q6HRRT VIKKI Administration Enoxaparin Sodium 40 mg 08/26/24 11:45 08/29/24 08:33 Enoxaparin Sod Inj 40 Mg/0.4 Ml Syringe SC 09/09/24 11:44 40 mg QDAY VIKKI Administration Hydromorphone HCl 1 mg 08/26/24 12:27 08/29/24 08:34 Hydromorphone Inj 2 Mg/Ml Vial IVP 08/31/24 12:26 1 mg Q4HR PRN Administration PAIN SCALE 7-10 (Severe Lactated Ringer's 1,000 mls @ 125 mls/hr 08/26/24 11:51 08/29/24 04:28 Lactated Ringers IV 09/25/24 11:50 125 mls/hr .Q8H VIKKI Administration Ketorolac Tromethamine 15 mg 08/29/24 09:39 Ketorolac Inj 30 Mg/Ml Vial IVP 09/03/24 09:38 Q6HR PRN SEVERE BREAKTHRU PAIN Magnesium Hydroxide 30 ml 08/26/24 11:37 Milk Of Magnesia Susp 30 Ml Udc PO 09/25/24 11:36 QDAY PRN CONSTIPATION Protocol Nicotine 14 mg 08/27/24 09:45 08/29/24 08:35 Nicotine Patch 14 Mg/24 Hr Patch.Td24 TOP 09/26/24 09:44 14 mg QDAY VIKKI Administration Ondansetron HCl 4 mg 08/26/24 22:22 08/28/24 22:38 Ondansetron Inj 2 Mg/Ml Inj 2 Ml IV 09/25/24 22:21 4 mg Q6HR PRN Administration NAUSEA OR VOMITING Protocol Trazodone HCl 50 mg 08/26/24 21:00 08/28/24 20:33 Trazodone Hcl 50 Mg Tablet PO 09/25/24 20:59 50 mg HS VIKKI Administration Plan Diana Servin is 64 yr female with PMH of schizophrenia, depression, and insomnia. MRCP showed stones in the gallbladder but no active obstruction. Patient admitted for gallstone induced acute pancreatitis. #Gallstone induced acute pancreatitis #Transaminitis?improving #Elevated lipase Ultrasound gallbladderShowed cholelithiasis, negative for cholecystitis. CT A/P confirmed cholelithiasis with gallbladder thickening. MRCP showed stones in the gallbladder but no active obstruction. Bilirubin 2.1, AST 451, ALT 471, lipase 1392-Labs now downtrending ?maintenance fluid 125 cc/h LR ? continue Dilaudid and [place]icker[place]ocker PRN -try pain meds IV ketorolac and acetaminophen in conjugation ? Zofran 4 mg for nausea ? Monitor I's and O's ? Advance diet as tolerated #AHRF #Tobacco use Ddx: pain, opioids, hx smoking Patient requiring 2 L via nasal cannula, desaturates to high 80s on room air History of smoking. Rhonchi on exam throughout. Patient denies feeling short of breath. ?Nicotine patches as needed ?DuoNebs every 6 hours #Uterine mass?resolved CT A/P shows irregular uterine fundus with multiple uterine masses Transvaginal ultrasound without uterine mass. #Right thyroid nodule 6mm nodule on CT chest with contrast -follow up outpatient #Hx schizophrenia ? Resume home medication 30 mg lurasidone #Hx depression #Hx insomnia ? 30 mg trazodone #Hyperbilirubinemia?resolved Health maintenance: Dispo: Fluids and pain meds for acute pancreatitis, pending surgery recs DVT prophylaxis: Lovenox 40 daily CODE STATUS: Full code Diet: Advance as tolerated The patient's management plan was discussed with my attending physician Dr. Lawton and senior Dr. Mcdonnell. Liz Lima PGY1 Attending Provider Attestation/Addendum I reviewed labs, imaging, EKG, home medications and prior available records. Face to face evaluation was performed by me. I have personally examined the patient and discussed assessment and plan with the IM team. I reviewed the resident note and agree with the plan with exceptions as below. Acute pancreatitis Transaminitis Cholelithiasis Consulted general surgery on 08/29: Status post laparoscopic cholecystectomy on 08/29. Clear liquid diet, advance as tolerated Continue to manage pain as needed. She required IV Dilaudid Outpatient follow-up with general surgery Trend LFTs: Downtrending
[2024-08-29] MEDS: KETOROLAC INJ 30 MG/ML VIAL 15 MG IVP (10:59)
--- NOTE | 2024-08-29 12:07 | ESCONSULT_ITS ---
HPI Consult details Consult date: 08/28/24 Reason for consultation narrative: Gallstone pancreatitis History of present illness: * 64-year-old female with history of schizophrenia and depression was admitted few days ago with abdominal pain with nausea and vomiting. She started developing epigastric and right upper quadrant abdominal pain radiating to her back. She has had nausea and vomiting. Abdominal ultrasound revealed gallstones, CT scan revealed mild pancreatitis and MRCP did not show CBD stone. Initially she was noted to have elevation of liver and pancreatic enzymes, her liver enzymes are improving. Review of Systems Constitutional Constitutional: Denies chills and Denies fever(s) Cardiovascular Cardiovascular: Denies chest pain Respiratory Respiratory: Denies cough Gastrointestinal Gastrointestinal: Reports abdominal pain, Reports nausea and Reports vomiting Hematologic/Lymphatic Hematologic/Lymphatic: Denies easy bleeding and Denies easy bruising Past Medical History Surgical History OTHER SURGICAL HX: , nasal surgery Social History SMOKING STATUS: Current every day smoker SUBSTANCE USE: does not use ALCOHOL: Current Meds Home Medications and Allergies Allergies Allergy/AdvReac Type Severity Reaction Status Date / Time No Known Allergies Allergy Verified 08/25/24 13:43 Exam Vital Signs Temp Pulse Resp BP Pulse Ox O2 Del Method O2 Flow Rate 96.9 F 80 14 128/86 H 94 L Nasal Cannula 2 08/29/24 07:55 08/29/24 07:55 08/29/24 07:55 08/29/24 07:55 08/29/24 07:55 08/29/24 07:55 08/29/24 07:55 Constitutional Constitutional: no acute distress Routine HEENT Exam Eye: Present PERRL (Anicteric sclera) Routine Abdominal Exam Abdominal: Present soft, normoactive bowel sounds and tenderness (Epigastric and right upper quadrant tenderness to palpation with guarding, no rebound tenderness or peritonitis at this time); Absent distended Results Results: Laboratory Laboratory results: results reviewed Results: Imaging Imaging narrative: Abdominal ultrasound, CT scan of abdomen pelvis and MRCP images reviewed, radiologist interpretation noted Assessment & Plan Problem List (1) Biliary acute pancreatitis without necrosis or infection: Status: Acute Plan Plan for laparoscopic possible open cholecystectomy. Risks include but not limited to infection, bleeding, injury to bowel, liver, stomach, bile duct, retained stone, bile leak, abdominal sepsis and or abdominal abscess, need for further procedure and or operation discussed with the patient. Benefits and alternatives explained to her, all her questions answered, she agreed and consented to proceed with the operation.
--- NOTE | 2024-08-29 12:48 | PD.SUROPNT ---
Date of Procedure 08/29/24 Pre Op Diagnosis Gallstone pancreatitis Post Op Diagnosis Cholelithiasis with cholecystitis Procedure Laparoscopic cholecystectomy Findings Distended gallbladder with multiple gallstones and pericholecystic edema Procedure Description Patient was brought into the operating room in supine position. After administration of general endotracheal anesthesia abdomen was prepped and draped in standard surgical manner. A Veress needle was inserted through the umbilicus and pneumoperitoneum was obtained up to 15 mmHg. The Veress needle was then removed, a 5 mm infraumbilical incision was made and the 5mm trocar was inserted. Laparoscopic camera was placed. Under direct visualization a laparoscopic camera a 10 mm trocar was placed in subxiphoid and two 5 mm trocars placed in right upper quadrant. The gallbladder was identified and was noted to be very distended with multiple gallstones and significant pericholecystic edema. The gallbladder was decompressed. It was retracted cephalad and laterally. Dissection started near the infundibulum of gallbladder where cystic duct and gallbladder junction clearly identified. The cystic duct was circumferentially dissected off the peritoneum and surrounding inflammatory tissue. The critical view of safety was clearly demonstrated. Cystic duct was then divided between 2 endoclips proximally and one distally. The cystic artery was similarly dissected and divided. The gallbladder was then from the liver bed using electrocautery. The gallbladder was then placed inside an Endo Catch and removed from the abdomen utilizing subxiphoid trocar site. The area was copiously and thoroughly washed and irrigated, all the fluid was suctioned and the suction fluid returned clear. Hemostasis achieved using electrocautery, also topical hemostatic agent using snow Surgicel placed at the gallbladder fossa to further assure hemostasis. Endoclips noted be in place and intact without any bleeding or any leakage. Hemostasis was adequate and satisfactory. The subxiphoid trocar sites fascial defect was closed with 0 Vicryl using Endo Closure device. Instruments and trocars removed, pneumoperitoneum was evacuated and the incisions closed with 4-0 Monocryl in subcuticular fashion. Instrument needle and sponge counts were all reported to be correct X2. Patient tolerated the procedure well, was extubated, breathing spontaneously and without difficulty and was transferred to postanesthesia care in stable condition. Anesthesia GETA and local Pathology / specimen Other (Gallbladder and contents) Estimated Blood Loss 10 Condition Stable Disposition PACU Surgeon Padmini Mosqueda MD Surgical Staff Operation Date: 08/29/24 12:15 Case Staff Anesthesiologist: Gutierrez Srivastava RNlab animal technician: Emilie Sanchez
[2024-08-29] MEDS: fentaNYL CIT INJ 50 mCg/ML AMP 2ML IV (13:29)
--- NOTE | 2024-08-29 13:46 | SUR.PHASEI ---
1254: pt awake, alert, able to follow commands, breathing unlabored, dressing to abdomen clean, dry, and intact, report from Cecilia BRYANT and Dr Srivastava 1346: pt awake, alert, able to follow commands, breathing unlabored, able to ambulate to bathroom with steady gait, dressing to abdomen clean, dry, and intact, pt able to tolerate ice chips, report called to Ochoa BRYANT, pt transferred to room at this time.
[2024-08-29] MEDS: DOCUSATE SOD 100 MG CAPSULE PO (20:42)
[2024-08-29] MEDS: traZODone HCL 50 MG TABLET PO (20:42)
[2024-08-30] VITALS (8 sets, daily range): BP systolic 103–140; BP diastolic 66–94; PULSE 72–86; RESP 16–19; TEMP 36.5–36.9; O2SAT 90–97; BMI 29.0
[2024-08-30] MEDS: HYDROmorphone INJ 2 MG/ML VIAL 1 MG IVP ×2 (04:35→08:35)
[2024-08-30 05:22] LABS: Basophils % (Auto) 0 % (0-2.5); Eosinophils % (Auto) 0 % (0-10); Hematocrit 39.1 % (36.0-46.0); Immature Granulocytes % (Auto) 0 % (0-0); Immature Granulocytes Auto 0.01 Thou/mm3 (0.00-0.00); Lymphocytes # (Auto) 1.4 Thou/mm3 (1.0-4.8); Lymphocytes % (Auto) 23 % (10-50); Mean Corpuscular HGB Conc 33.2 g/dl (31.0-37.0); Mean Corpuscular Hemoglobin 31.7 pg (25.0-35.0); Mean Corpuscular Volume 95 fL (80-100); Monocytes # (Auto) 0.6 Thou/mm3 (0.0-0.8); Monocytes % (Auto) 10 % (0-12); Neutrophils # (Auto) 3.9 Thou/mm3 (1.8-7.7); Neutrophils % (Auto) 66 % (37-80); Nucleated Red Blood Cell % 0 /100 WBC (0); Platelet Count 203 Thou/mm3 (140-440); RDW Standard Deviation 48.7 fL (36.4-46.3)
[2024-08-30 05:43] LABS: Alanine Aminotransferase 73 U/L (10-49); Albumin, Serum 3.5 gm/dL (3.4-4.8); Albumin/Globulin Ratio 1.7 (1.2-2.2); Alkaline Phosphatase 68 U/L (46-116); Anion Gap 7 (7-16); Aspartate Amino Transferase 32 U/L (0-34); BUN/Creatinine Ratio 18 Ratio (12-20); Bilirubin,Total 0.7 mg/dL (0.3-1.2); Blood Urea Nitrogen 9 mg/dL (9-23); Calcium (Corrected) 9.4 mg/dL (8.5-10.1); Carbon Dioxide 35.5 mMol/L (20.0-31.0); Chloride 97 mMol/L (98-107); Creatinine (Component) 0.5 mg/dL (0.6-1.3); Estimated Creatinine Clearance 124.1 mL/min (>60); Globulin 2.1 gm/dL (2.3-3.5); Glucose 92 mg/dL (74-106); Osmolality,Calculated 276 (275-295); Potassium 3.5 mMol/L (3.4-5.1); Sodium 139 mMol/L (136-145); Total Protein 5.6 gm/dL (5.7-8.2); eGFR > 60 See Note
[2024-08-30] MEDS: ALBUTEROL/IPRATROPIUM (Duoneb) RT SOL 3 ML NEBU INH ×2 (06:34)
[2024-08-30] MEDS: NICOTINE PATCH 14 MG/24 HR PATCH.TD24 TOP (08:25)
[2024-08-30] MEDS: POTASSIUM CHLORIDE 20 mEq TABCR 40 MEQ PO (08:25)
[2024-08-30] MEDS: DOCUSATE SOD 100 MG CAPSULE PO (08:25)
--- NOTE | 2024-08-30 09:52 | PD.RESPRO ---
Documentation for date of: 08/30/24 Subjective Subjective Interval history: Patient seen and examined at bedside. Yesterday she went for cholecystectomy by Dr. Mosqueda. Patient had enlarged gallbladder with multiple stones. There were no complications. Patient is doing much better today. Emesis has resolved and tolerating diet. Will wean off IV dilaudid and start IV torodol with norco. Abdomin coal washer tender with guarding by patient. Anticipate discharge in next 24 hrs if pain continues to improve. Exam Vital Signs Temp Pulse Resp BP Pulse Ox O2 Del Method O2 Flow Rate 97.8 F 72 19 103/70 94 L Nasal Cannula 2 08/30/24 08:00 08/30/24 08:00 08/30/24 08:00 08/30/24 08:00 08/30/24 08:00 08/30/24 08:00 08/30/24 08:00 Narrative Exam Constitutional: Sitting up, less pain today, more conversive Head: Normocephalic Eyes: no conjunctival injection , symmetrical lids. ENMT: moist Mucous Membranes CVS: RRR, S1 and S2 present, no murmurs, rubs or gallops . RESP: Rhonchi throughout, no increased work of breathing, on 2LNC GI: Soft, nondistended, extremely tender throughout MSK: No lower extremity edema Skin: Warm to touch, Dry. No bruising. Neuro: Alert and oriented Psych:Appropriate mood and affect. Objective Labs 08/30/24 04:31 08/30/24 04:31 Labs: Laboratory Results - last 24 hr 08/30/24 04:31 WBC 6.0 RBC 4.10 Hgb 13.0 Hct 39.1 MCV 95 MCH 31.7 MCHC 33.2 RDW Std Deviation 48.7 H Plt Count 203 D Neut % (Auto) 66 Lymph % (Auto) 23 Moody % (Auto) 10 Eos % (Auto) 0 Baso % (Auto) 0 Neut # (Auto) 3.9 Lymph # (Auto) 1.4 Moody # (Auto) 0.6 Eos # (Auto) 0.0 Baso # (Auto) 0.0 Immature Gran # (Auto) 0.01 H Absolute Nucleated RBC 0.00 Immature Gran % 0 Nucleated RBC % 0 Sodium 139 Potassium 3.5 Chloride 97 L Carbon Dioxide 35.5 H Anion Gap 7 BUN 9 Creatinine 0.5 L Estim Creat Clear Calc 124.1 eGFR > 60 BUN/Creatinine Ratio 18 Glucose 92 Calculated Osmolality 276 Calcium 9.0 Corrected Calcium 9.4 Total Bilirubin 0.7 AST 32 ALT 73 H Alkaline Phosphatase 68 Total Protein 5.6 L Albumin 3.5 Globulin 2.1 L Albumin/Globulin Ratio 1.7 Quality Measures Quality Measures none Assessment & Plan Assessment Current Active Medications: Generic Name Dose Route Start Last Admin Trade Name Freq PRN Reason Stop Dose Admin Acetaminophen 650 mg 08/26/24 11:37 Acetaminophen 325 Mg Tablet PO 09/25/24 11:36 Q6H PRN Fever >101.5 Acetaminophen 650 mg 08/26/24 11:37 08/28/24 08:35 Acetaminophen 325 Mg Tablet PO 09/25/24 11:36 650 mg Q6H PRN Administration PAIN SCALE 1-3 (mild Hydrocodone Bitart/Acetaminophen 1 tab 08/26/24 11:37 08/29/24 22:11 Hydrocodone/Apap 10/325 Tab PO 08/31/24 11:36 1 tab Q4H PRN Administration PAIN SCALE 4-6 (Moderate Albuterol/Ipratropium 3 ml 08/27/24 19:00 08/30/24 06:34 Albuterol/Ipratropium (Duoneb) Rt Annia 3 Ml Nebu INH 09/26/24 18:59 3 ml Q6HRRT VIKKI Administration Docusate Sodium 100 mg 08/29/24 21:00 08/30/24 08:25 Docusate Sod 100 Mg Capsule PO 09/28/24 20:59 100 mg BID VIKKI Administration Protocol Hydromorphone HCl 1 mg 08/26/24 12:27 08/30/24 08:35 Hydromorphone Inj 2 Mg/Ml Vial IVP 08/31/24 12:26 1 mg Q4HR PRN Administration PAIN SCALE 7-10 (Severe Lactated Ringer's 1,000 mls @ 125 mls/hr 08/30/24 07:52 Lactated Ringers IV 08/30/24 15:51 .Q8H VIKKI Magnesium Hydroxide 30 ml 08/26/24 11:37 Milk Of Magnesia Susp 30 Ml Udc PO 09/25/24 11:36 QDAY PRN CONSTIPATION Protocol Nicotine 14 mg 08/27/24 09:45 08/30/24 08:25 Nicotine Patch 14 Mg/24 Hr Patch.Td24 TOP 09/26/24 09:44 14 mg QDAY VIKKI Administration Ondansetron HCl 4 mg 08/26/24 22:22 08/28/24 22:38 Ondansetron Inj 2 Mg/Ml Inj 2 Ml IV 09/25/24 22:21 4 mg Q6HR PRN Administration NAUSEA OR VOMITING Protocol Trazodone HCl 50 mg 08/26/24 21:00 08/29/24 20:42 Trazodone Hcl 50 Mg Tablet PO 09/25/24 20:59 50 mg HS VIKKI Administration Plan Diana Servin is 64 yr female with PMH of schizophrenia, depression, and insomnia. MRCP showed stones in the gallbladder but no active obstruction. Patient admitted for gallstone induced acute pancreatitis. #Gallstone induced acute pancreatitis-resolving #Transaminitis?improving #s/p laproscopic cholecystectomy Ultrasound gallbladderShowed cholelithiasis, negative for cholecystitis. CT A/P confirmed cholelithiasis with gallbladder thickening. MRCP showed stones in the gallbladder but no active obstruction. Bilirubin 2.1, AST 451, ALT 471, lipase 1392-Labs now downtrending Dr. Mosqueda did lap cholecytectomy on 08/30. Patient had very distended gallbladder with multiple gallstones and significant pericholecystic edema. ?maintenance fluid 125 cc/h LR ? wean IV Dilaudid -control pain with IV torodol 15mg and and Wayne PRN -try pain meds IV ketorolac and acetaminophen in conjugation ? Zofran 4 mg for nausea ? Monitor I's and O's ? Advance diet as tolerated #AHRF #Tobacco use Ddx: pain, opioids, hx smoking Patient requiring 2 L via nasal cannula, desaturates to high 80s on room air History of smoking. Rhonchi on exam throughout. Patient denies feeling short of breath. ?Nicotine patches as needed ?DuoNebs every 6 hours #Uterine mass?resolved CT A/P shows irregular uterine fundus with multiple uterine masses Transvaginal ultrasound without uterine mass. #Right thyroid nodule 6mm nodule on CT chest with contrast -follow up outpatient #Hx schizophrenia ? Resume home medication 30 mg lurasidone #Hx depression #Hx insomnia ? 30 mg trazodone #Hyperbilirubinemia?resolved #Elevated lipase Health maintenance: Dispo: pain management s/p cholecystectomy DVT prophylaxis: Lovenox 40 daily CODE STATUS: Full code Diet: Advance as tolerated The patient's management plan was discussed with my attending physician Dr. Lawton and senior Dr. Mcdonnell. Liz Lima PGY1
[2024-08-30] MEDS: HYDROcodone/APAP 10/325 TAB PO (12:46)
[2024-08-30] MEDS: KETOROLAC 10 MG TABLET PO (13:56)
--- NOTE | 2024-08-30 14:11 | PD.SURPROG ---
Documentation for date of: 08/30/24 Subjective Subjective Narrative: Patient is seen and examined. She is feeling much better. Tolerating diet well Exam Vital Signs Temp Pulse Resp BP Pulse Ox O2 Del Method O2 Flow Rate 97.7 F 77 18 139/92 H 95 Room Air 2 08/30/24 12:00 08/30/24 12:39 08/30/24 12:39 08/30/24 12:00 08/30/24 12:39 08/30/24 12:00 08/30/24 12:39 Constitutional Constitutional: no acute distress Routine Abdominal Exam Abdominal: Present soft, normoactive bowel sounds and tenderness (Mild epigastric incisional tenderness. Incisions are clean, dry and intact); Absent distended Assessment & Plan Assessment Additional comments: Postop day #1 status post laparoscopic cholecystectomy Plan May discharge home Procedures Procedures Laparoscopic cholecystectomy
--- NOTE | 2024-08-30 15:27 | PD.RESDS ---
Planned Discharge Date 08/30/24 DS: Providers Provider Date of admission: 08/26/24 11:37 Primary care physician: Pablo Alvarez PA-C Admitting Provider: Leopoldo Medina DO Attending Provider on Admission: Leopoldo Medina DO Consults: 08/26/24 15:59 [facility] Referral - Nutrition Routine Comment: Positive screening for nutrition needs. 08/26/24 16:00 Referral Registered Dietitian Routine Comment: 08/29/24 10:30 Consult to General Surgery Routine Comment: gallstone induced pancreatitis Consulting Provider: Padmini Mosqueda Attending Provider on DC: Bravo Lawton MD Discharging Provider: Bravo Lawton MD DS: Diagnosis Problem List Completed Was Problem List Reviewed/Reconciled?: Yes Hospital Course Hospital Course Hospital course: Reason for hospitalization: gallstone pancreatitis Diana Servin is 64 yr female with PMH of schizophrenia, depression, over 20 pack yr smoking history, and insomnia. Presented to [facility] ED on 08/26/24 after experiencing acute abdominal pain, nausea, and vomiting. Labs showed transaminitis AST 451, ALT 471, bilirubin 2.1, lipase 1392. Patient underwent MRCP which showed Cholelithiasis, no bile duct obstruction. She was admitted for gallstone induced pancreatitis. Started on IV fluids and pain medication, she had no major improvement of symptoms. Gen surgery Dr. Mosqueda was consulted on day 3 of hospitalization. Patient underwent laparoscopic cholecystectomy on 08/29/24. Pain improved and diet was advanced with no episodes of vomiting. CT A/P had also shown irregular uterine fundus with multiple uterine masses. Follow up transvaginal ultrasound was negative for uterine mass. Patient was extensively counseled on smoking cessation. Patient is now in stable condition and ready for discharge. Recommendations were given as below. Discharge Recommendations: Refrain from smoking. Take Ketorolac 10mg every 4-6hrs as needed for pain. Take Drybranch 5/325 tabs every 4-6hrs as needed for pain. Follow up with PCP in 1-2 weeks. Hospital Diagnoses: #Gallstone induced acute pancreatitis #Transaminitis?improving #Elevated lipase # Laparoscopic cholecystectomy #AHRF # Current tobacco use #Uterine mass?resolved #Right thyroid nodule #Hx schizophrenia #Hx depression #Hx insomnia The patient's management plan was discussed with my attending physician Dr. Lawton. Liz Lima MD, PGY-1 Time spent discussing smoking cessation with patient: more than 10 minutes Time Spent with Patient Time attestation: Total time spent providing and/or coordinating discharge services: Time spent: Greater than 30 minutes Exam Vital Signs Temp Pulse Resp BP Pulse Ox O2 Del Method O2 Flow Rate 97.7 F 77 18 139/92 H 95 Room Air 2 08/30/24 12:00 08/30/24 12:39 08/30/24 12:39 08/30/24 12:00 08/30/24 12:39 08/30/24 12:00 08/30/24 12:39 Narrative Exam Constitutional: comfortable, lying in bed Head: Normocephalic Eyes: no conjunctival injection , symmetrical lids. ENMT: moist Mucous Membranes CVS: RRR, S1 and S2 present, no murmurs, rubs or gallops . RESP: Rhonchi throughout, no increased work of breathing GI: Soft, nondistended, tenderness throughout MSK: No lower extremity edema Skin: Warm to touch, Dry. No bruising. Neuro: Alert and oriented Psych:Appropriate mood and affect. Discharge Plan Plan Patient Disposition: HOME (Self Care) Disposition Comment: Stable Patient condition on transfer: Stable Prescriptions/Referrals Prescriptions/Med Rec: New nicotine 14 mg/24 hr Patch 24 Hour 14 mg top QDAY 30 Days Qty: 28 0RF trazodone 50 mg Tablet 50 mg PO HS PRN (Reason: insomnia) 30 Days Qty: 30 0RF ketorolac 10 mg tablet 10 mg PO Q6H 7 Days Qty: 28 0RF Rx Instructions: maximum total duration of 5 days from all oral, intranasal, or parenteral formulations hydrocodone-acetaminophen 5-325 mg tablet 1 tab PO Q6H MDD 4 tablets PRN (Reason: pain) 4 Days Qty: 16 0RF Referrals: Pablo Alvarez PA-C [Primary Care Provider] - Patient/Caregiver Discharge Instructions Discharge Activity: activity as tolerated Other Discharge Activity Instructions:: Refrain from smoking. Take Ketorolac 10mg every 4-6hrs as needed for pain. Take Drybranch 5/325 tabs every 4-6hrs as needed for pain. Follow up with PCP in 1-2 weeks. Other Discharge Diet Instructions: Low fat diet. Education Materials: Preventing Surgical Site Infections Print Language: Azeri Activity Restrictions/Additional Instructions: May shower in 24 hours. Avoid lifting, straining, pulling or pushing for 4 weeks. May take over the counter laxatives if no bowel movement in 2 days. Follow up with Dr. Mosqueda in 2 weeks, call [phone] for an appointment. Stand Alone Forms: Luciana Award Info., Patient Portal Info Letter Discharge Order Discharge Orders: Discharge (Routine); Ordered 08/30/24 Ordered By: Liz Lima Quality Discharge Quality Measures VTE prophylaxis Attestestation MD Attestation I reviewed labs, imaging, EKG, home medications and prior available records. Face to face evaluation was performed by me. I have personally examined the patient and discussed assessment and plan with the IM team. I reviewed the resident note and agree with the plan with exceptions as below. Acute pancreatitis Transaminitis Cholelithiasis Consulted general surgery on 08/29: Status post laparoscopic cholecystectomy on 08/29. She tolerated her advanced diet Continue to manage pain as needed Outpatient follow-up with general surgery Trend LFTs: Downtrending Time spent is 40 minutes. More than 50% of the time was spent on patient education and coordination of care.
== END 2024-08-30 16:25 | disposition home or self-care (01) | DRG 263 ==
LOC: SERX 08-26 11:41 → SERHOLD 08-26 12:12 → S3NX 08-26 15:12
PROVIDERS: Nurse Practitioner Family; Surgery; Admitting Provider Student in an Organized Health Care Education/Training Program; Emergency Provider Emergency Medicine; PCP Family Medicine; Visit Provider Student in an Organized Health Care Education/Training Program
PROC: 0FT44ZZ Resection of Gallbladder, Percutaneous Endoscopic Approach (ICD-10-PCS; CPT 47562; principal; 2024-08-29 12:00)
DX: K80.10 Calculus of gallbladder with chronic cholecystitis without obstruction (principal); K85.10 Biliary acute pancreatitis without necrosis or infection; G47.00 Insomnia, unspecified; F32.A Depression, unspecified; R51.9 Headache, unspecified; F20.9 Schizophrenia, unspecified; J96.01 Acute respiratory failure with hypoxia; K82.8 Other specified diseases of gallbladder; R31.9 Hematuria, unspecified; F17.210 Nicotine dependence, cigarettes, uncomplicated; R74.01 Elevation of levels of liver transaminase levels; R74.8 Abnormal levels of other serum enzymes; E04.1 Nontoxic single thyroid nodule
CPT/HCPCS: 36415; 71046; 71260; 74177; 76705; 76830; 80053; 80061; 81001; 83690; 83735; 83880; 84484; 85025; 87086; 87400; 87811; 93005; 93225; 94640; 94664; 96361; 96365; 96366; 96367; 96375; 96376; 99285; A4217; A4649; A9270; J0131; J0694; J1100; J1650; J1885; J2270; J2371; J2405; J2543; J2704; J3010; J3490; J7030; J7120; Q0162; Q9967; S8037; 74181; J1805

== ENCOUNTER 2024-09-03 12:47 | Emergency (ER) | payer MEDICAID, SELFPAY ==
[2024-09-03] VITALS (14 sets, daily range): BP systolic 114–147; BP diastolic 76–104; PULSE 73–93; RESP 16–20; TEMP 36.5–37.1; O2SAT 89–96; BMI 27.8
--- NOTE | 2024-09-03 13:02 | XR_ITS ---
Examination: CT abdomen and pelvis without contrast. Coronal 3-D reconstructions. Sagittal 2-D reconstructions. Date and time of exam:September 03, 2024 1325 hrs. Comparison August 25, 2024 Indications: Generalized abdominal pain nausea vomiting beginning 5 days ago, status post cholecystectomy August 29, 2024 CTDI: vol (mGy): 10.3 DLP: (mGycm): 578 Technique: Axial images of the abdomen have been obtained, 3 mm slice thickness Intravenous contrast material has not been administered. Low dose protocols were performed. One or more of the following dose reduction techniques were used; automated exposure control, adjustment of the mA and/or KV according to patient size, use of iterative reconstruction technique. Findings: Fatty infiltration throughout the liver with multiple cysts Absent gallbladder Fluid air collection in the gallbladder fossa, 30 x 20 mm Spleen is not enlarged No pancreatic mass Minimal nodular thickening left adrenal gland Anterior 33 mm left renal cyst 2 mm 1 mm left renal calculi, no hydronephrosis or ureteral calculi Abdominal aortic calcification Normal appendix No bowel obstruction Solid irregular enhancing mass contiguous with the fundus of uterus, measuring at least 8.2 x 7.4 cm Moderate disc narrowing L3-L4 Urinary bladder intact Impression: Fluid air collection in the gallbladder fossa 30 x 20 mm, which may represent early abscess, recommend follow-up CT imaging post intravenous contrast and clinical assessment Solid irregular enhancing mass contiguous with the fundus of uterus, at least 8.2 x 7.4 cm, differential would include malignant neoplasm of the uterus, ovarian tumor mass, recommend repeat transabdominal transvaginal pelvic sonography follow-up
--- NOTE | 2024-09-03 13:03 | PD.EDRME ---
Rapid Medical Screening Exam RME Arrival date/time: 09/03/24 12:47 64-year-old female with a history of cholecystectomy presents to the emergency room with a chief complaint of right upper quadrant and epigastric abdominal pain and tenderness. Patient states she just recently got her gallbladder removed 2 weeks ago and states she has been having increased pain and tenderness to that area. I have greeted and performed a focused initial assessment of this patient. A comprehensive ED assessment and evaluation of the patient, analysis of all test results, and completion of the medical decision making process will be conducted by additional ED providers. Chief Complaint: Abdominal Pain Time Seen by Provider: 09/03/24 12:59 Vital signs reviewed by provider: Yes
[2024-09-03] MEDS: ONDANSETRON ODT 4 MG TABRAP PO (13:18)
[2024-09-03 14:04] LABS: Basophils % (Auto) 0 % (0-2.5); Eosinophils # (Auto) 0.1 Thou/mm3 (0.0-0.5); Eosinophils % (Auto) 0 % (0-10); Hematocrit 48.1 % (36.0-46.0); Hemoglobin 16.6 g/dL (12.0-16.0); Immature Granulocytes % (Auto) 0 % (0-0); Immature Granulocytes Auto 0.05 Thou/mm3 (0.00-0.00); Lymphocytes # (Auto) 2.1 Thou/mm3 (1.0-4.8); Lymphocytes % (Auto) 16 % (10-50); Mean Corpuscular HGB Conc 34.5 g/dl (31.0-37.0); Mean Corpuscular Hemoglobin 31.4 pg (25.0-35.0); Mean Corpuscular Volume 91 fL (80-100); Monocytes # (Auto) 1.1 Thou/mm3 (0.0-0.8); Monocytes % (Auto) 8 % (0-12); Neutrophils # (Auto) 9.8 Thou/mm3 (1.8-7.7); Neutrophils % (Auto) 74 % (37-80); Nucleated Red Blood Cell % 0 /100 WBC (0); Platelet Count 372 Thou/mm3 (140-440); RDW Standard Deviation 48.5 fL (36.4-46.3); Red Blood Count 5.28 Miln/mm3 (4.00-5.20); White Blood Count 13.1 Thou/mm3 (3.6-11.0)
[2024-09-03 14:22] LABS: Alanine Aminotransferase 34 U/L (10-49); Albumin, Serum 4.5 gm/dL (3.4-4.8); Albumin/Globulin Ratio 1.7 (1.2-2.2); Alkaline Phosphatase 77 U/L (46-116); Anion Gap 11 (7-16); Aspartate Amino Transferase 20 U/L (0-34); BUN/Creatinine Ratio 17 Ratio (12-20); Bilirubin,Total 0.7 mg/dL (0.3-1.2); Blood Urea Nitrogen 12 mg/dL (9-23); Calcium 9.7 mg/dL (8.3-10.6); Calcium (Corrected) 9.7 mg/dL (8.5-10.1); Carbon Dioxide 28.2 mMol/L (20.0-31.0); Chloride 98 mMol/L (98-107); Creatinine (Component) 0.7 mg/dL (0.6-1.3); Estimated Creatinine Clearance 91.8 mL/min (>60); Globulin 2.6 gm/dL (2.3-3.5); Glucose 95 mg/dL (74-106); Lipase 51 U/L (12-53); Osmolality,Calculated 273 (275-295); Potassium 3.3 mMol/L (3.4-5.1); Sodium 137 mMol/L (136-145); Total Protein 7.1 gm/dL (5.7-8.2); eGFR > 60 See Note
[2024-09-03 14:55] LABS: Collection Type, Urine Clean Catch
[2024-09-03 15:17] LABS: Bacteria,Urine Rare; Bilirubin,Urine Negative (Negative); Blood,Urine Negative (Negative); Clarity,Urine Turbid (Clear/Hazy); Color,Urine Yellow (Lt Yel-Yel); Glucose, Urine Negative (Negative); Hyaline Casts,Urine < 1 /hpf (0-1); Ketones,Urine 3+ (Negative); Leukocyte Esterase,Urine Negative (Negative); Nitrite,Urine Negative (Negative); Protein,Urine Trace (Neg - Trace); RBC,Urine 1 /hpf (0-3); Specific Gravity,Urine 1.016 (1.001-1.035); Squamous Epithelial Cell,Urine 22 /hpf (0-5); WBC,Urine 2 /hpf (0-5)
--- NOTE | 2024-09-03 17:41 | PD.EDADULT ---
ED General RME/HPI General Chief complaint: Abdominal Pain Stated complaint: ABD PAIN POST ADI 08/29/24; VOMITING Time Seen by Provider: 09/03/24 12:59 Arrival date/time: 09/03/24 12:47 CC: Right upper quadrant abdominal pain HPI onset 48 hours ago progressive increase in severity, denies fever chills but has had nausea and vomiting. Patient denies diarrhea. Last meal was 18 hours ago. Patient had a cholecystectomy 5 days ago states she was recovering well until now. Pain medications at home are not sufficient for managing the pain. RME / HPI RME / HPI narrative: 09/03/24 12:47 64-year-old female with a history of cholecystectomy presents to the emergency room with a chief complaint of right upper quadrant and epigastric abdominal pain and tenderness. Patient states she just recently got her gallbladder removed 2 weeks ago and states she has been having increased pain and tenderness to that area. I have greeted and performed a focused initial assessment of this patient. A comprehensive ED assessment and evaluation of the patient, analysis of all test results, and completion of the medical decision making process will be conducted by additional ED providers. Related Data Previous Rx's ?Medication ?Instructions ?Recorded ketorolac 10 mg tablet 10 mg PO Q6H 7 days #28 tabs 08/30/24 nicotine 14 mg/24 hr daily 14 mg top QDAY 30 days #28 ea 08/30/24 transdermal patch trazodone 50 mg tablet 50 mg PO HS PRN insomnia 30 days 08/30/24 #30 tabs ciprofloxacin HCl 500 mg tablet 500 mg PO BID #14 tabs 09/04/24 (Cipro) meloxicam 7.5 mg tablet 7.5 mg PO QDAY #10 tabs 09/04/24 Allergies Allergy/AdvReac Type Severity Reaction Status Date / Time No Known Allergies Allergy Verified 09/03/24 12:48 Review of Systems Review of Systems Narrative Review of Systems: GEN: No fever, no chills, no weight loss EYES: No discharge, no visual changes, no pain HEENT: No ear pain, no congestion, no sore throat PULM: No shortness of breath, no cough, no congestion CV: No chest pain, no dyspnea on exertion, no palpitations GI: + nausea, + vomiting, no diarrhea, + pain, no constipation : No frequency, no urgency, no dysuria MUSC/SKEL: No joint pain, no back pain SKIN: No rash PSYCH: No hallucinations, no depression HEME/LYMPH: No easy bleeding or bruising tendencies NEURO: No weakness, no headache ED Exam Narrative Physical exam: [General: In moderate discomfort not in any acute distress Head normocephalic HEENT: Within acceptable limits Neck is supple nontender Chest equal chest rise nontender to palpation Respiratory: Clear to auscultation no wheezes crackles or rubs CV: Rate rhythm is regular no murmurs rubs or clicks Abdomen, right upper quadrant abdominal pain reflexive guarding no rebound tenderness surgical sites are clean dry and intact mildly distended soreness to the left upper quadrant no lower abdominal pain with palpation. Back: No CVA tenderness no spinous process tenderness from cervical spine thoracic and lumbar spine Skin: Intact no petechiae rash induration ulceration or crepitus Extremities: Moving all extremity against resistance cap refill less than 2 seconds neurosensory intact Neuro: Awake alert oriented x3 Glascow coma 15 no focal deficits] Course Course Course Narrative: Patient's case discussed with Dr. Mosqueda stating the patient needs a HIDA scan if it is positive patient needs an ERCP and be transferred out. Patient given the option of to go home, or stay here throughout the night until HIDA can be arranged in the morning but came patient elected to stay here because of pain management and the patient lives an hour and a half away in the [facility]. Currently the pharmacies are closed so even if I wrote for pain medication she would not be able to get them. 09/04/2024 11:40 AM care assumed from Dr. Luis. Patient was reassessed. Patient is requesting more pain medication for right upper quadrant pain. Vital signs are stable. Currently awaiting HIDA scan. Quality Measures none Orders Category Date Time Status Saline [Insert IV] NOW Care 09/03/24 17:[address] abdomen pelvis wo con Stat Exams 09/03/24 13:02 Completed NM HIDA w pharm Stat Exams 09/04/24 07:29 Completed CBC Stat Lab 09/03/24 13:45 Completed CBC Stat Lab 09/04/24 16:34 Completed CMP [Comprehensive Metabolic Panel] Stat Lab 09/03/24 13:45 Completed CMP [Comprehensive Metabolic Panel] Stat Lab 09/04/24 16:34 Received Lipase Stat Lab 09/03/24 13:45 Completed UA [Urinalysis] Stat Lab 09/03/24 14:29 Completed Urine Culture Stat Lab 09/03/24 14:29 Received HYDROmorphone INJ [Dilaudid Inj] Med 09/04/24 07:15 Discontinued 1 mg IVP X1 ONE HYDROmorphone INJ [Dilaudid Inj] Med 09/04/24 11:39 Discontinued 1 mg IVP X1 ONE HYDROmorphone INJ [Dilaudid Inj] Med 09/04/24 15:22 Discontinued 1 mg IVP X1 ONE Morphine Inj Med 09/03/24 17:40 Discontinued 4 mg IVP X1 ONE Morphine Inj Med 09/04/24 01:55 Discontinued 5 mg IVP X1 ONE Ondansetron Inj [Zofran Inj] Med 09/03/24 17:40 Discontinued 4 mg IV X1 ONE Ondansetron Inj [Zofran Inj] Med 09/04/24 01:55 Discontinued 4 mg IV X1 ONE Ondansetron Odt [Zofran Odt] Med 09/03/24 13:03 Discontinued 4 mg PO X1 ONE Sodium Chloride 0.9% 1000 ml [Ns] 1,000 ml Med 09/03/24 18:28 Discontinued IV 75 mls/hr Sodium Chloride 0.9% 500 ml [Ns] 500 ml Med 09/03/24 17:40 Discontinued IV 999 mls/hr oxyCODONE/APAP 5/325 [Percocet 5/325] Med 09/03/24 20:52 Discontinued 2 tab PO X1 ONE Vital Signs Vital signs: Vital Signs Temperature 97.7 F 09/03/24 13:01 Pulse Rate 93 09/03/24 13:01 Respiratory Rate 20 09/03/24 13:01 Blood Pressure 147/76 H 09/03/24 13:01 Pulse Oximetry (%) 95 09/03/24 13:01 Oxygen Delivery Method Room Air 09/03/24 13:01 [facility] Patient data External records reviewed:: [facility] previous records Clinical information provided by:: patient Social determinants that could affect healthcare access:: none Patient has the following chronic illnesses:: Recent cholecystectomy prior smoker How is presenting disease/condition affected by chronic disease/condition?: uneffected by Evaluation data The following diagnostics were reviewed and interpreted by me:: lab results and radiology exam(s) Lab and/or radiology exams considered but not ordered:: CBC shows a 13,000 white count, hemoconcentrated normal white count CMP shows a potassium of 3.3 no other significant electrolyte imbalances no transaminitis or T. bili elevation. Urine is negative CT shows air-fluid collection in the gallbladder fossa status postcholecystectomy as interpreted by me read by radiology also shows a mass on the fundus of the uterus. September 04, 2024 CBC shows normal white count no anemia thrombocytopenia Interpretation Summary: Patient's case discussed with Dr. Mosqueda for second time after the HIDA scan shows no obstruction. Dr Mosqueda advised the patient to be placed on Cipro for 7 days and discharged home to follow-up with him on a regular scheduled outpatient basis. Patient is in agreement with this plan. Medications Medications considered but not ordered:: None Medication administrations:: Medication Administration History Discontinued Medications Hydromorphone HCl (Hydromorphone Inj 2 Mg/Ml Vial) 1 mg IVP X1 ONE Stop: 09/04/24 07:16 Last Admin: 09/04/24 07:25 Dose: 1 mg Documented By: NICCI Hydromorphone HCl (Hydromorphone Inj 2 Mg/Ml Vial) 1 mg IVP X1 ONE Stop: 09/04/24 11:40 Last Admin: 09/04/24 12:02 Dose: 1 mg Documented By: NICCI Hydromorphone HCl (Hydromorphone Inj 2 Mg/Ml Vial) 1 mg IVP X1 ONE Stop: 09/04/24 15:23 Last Admin: 09/04/24 15:32 Dose: 1 mg Documented By: NICCI Sodium Chloride (Ns) 500 mls @ 999 mls/hr IV .Q31M ONE Stop: 09/03/24 18:10 Last Infusion: 09/03/24 18:59 Dose: Infused Documented By: Admin: 09/03/24 18:04 Dose: 999 mls/hr Documented By: EM Sodium Chloride (Ns) 1,000 mls @ 75 mls/hr IV .[id number] ONE Stop: 09/04/24 07:47 Last Infusion: 09/04/24 08:19 Dose: Infused Documented By: Admin: 09/03/24 18:41 Dose: 75 mls/hr Documented By: EM Morphine Sulfate (Morphine Sulf Inj 10 Mg/Ml Vial) 4 mg IVP X1 ONE Stop: 09/03/24 17:41 Last Admin: 09/03/24 18:04 Dose: 4 mg Documented By: GM Morphine Sulfate (Morphine Sulf Inj 10 Mg/Ml Vial) 5 mg IVP X1 ONE Stop: 09/04/24 01:56 Last Admin: 09/04/24 02:04 Dose: 5 mg Documented By: KG Ondansetron HCl (Ondansetron Odt 4 Mg Tabrap) 4 mg PO X1 ONE; Protocol Stop: 09/03/24 13:04 Last Admin: 09/03/24 13:18 Dose: 4 mg Documented By: KF Ondansetron HCl (Ondansetron Inj 2 Mg/Ml Inj 2 Ml) 4 mg IV X1 ONE; Protocol Stop: 09/03/24 17:41 Last Admin: 09/03/24 18:05 Dose: 4 mg Documented By: GM Ondansetron HCl (Ondansetron Inj 2 Mg/Ml Inj 2 Ml) 4 mg IV X1 ONE; Protocol Stop: 09/04/24 01:56 Last Admin: 09/04/24 02:01 Dose: 4 mg Documented By: KG Oxycodone/Acetaminophen (Oxycodone/Apap 5/325 Tablet) 2 tab PO X1 ONE Stop: 09/03/24 20:53 Last Admin: 09/03/24 21:07 Dose: 2 tab Documented By: ALIA None Consultations Consultation(s) initiated? (list below): Yes Consultation #1 (Physician, Specialty, Details): Jaylin Time: 17:47 Diagnosis Differential Diagnosis ED Complaint MDM: Right upper quadrant abdominal pain, choledocholithiasis, CBD leak Most likely diagnosis given after review of the tests above:: Right upper quadrant abdominal pain Admission Indicated Admission indicated?: not indicated Explain why admission is indicated or not indicated:: Stable for discharge Admission Request Was there a request for admission?: No Disposition Plan Disposition Plan: Discharge Discharge Attestation Discharge Attestation: The patient and all family members were given an opportunity to ask questions and understood the discharge instructions. Discharge instructions specifically effects, indications for sooner follow up or return to the emergency department, and the expected course of current diagnosis. Patient condition: Stable Medical Decision Making Differential Diagnosis Differential Diagnosis: Right upper quadrant abdominal pain, choledocholithiasis, CBD leak Lab Data 09/04/24 16:34 09/03/24 13:45 Labs: Lab Results 09/03/24 09/03/24 09/04/24 Range/Units 13:45 14:29 16:34 WBC 13.1 H D 10.0 (3.6-11.0) Thou/mm3 RBC 5.28 H 4.50 (4.00-5.20) Miln/mm3 Hgb 16.6 H D 14.2 D (12.0-16.0) g/dL Hct 48.1 H 42.5 (36.0-46.0) % MCV 91 94 (80-100) fL MCH 31.4 31.6 (25.0-35.0) pg MCHC 34.5 33.4 (31.0-37.0) g/dl RDW Std Deviation 48.5 H 50.4 H (36.4-46.3) fL Plt Count 372 D 310 D (140-440) Thou/mm3 Neut % (Auto) 74 69 (37-80) % Lymph % (Auto) 16 18 (10-50) % [place] % (Auto) 8 10 (0-12) % Eos % (Auto) 0 2 (0-10) % Baso % (Auto) 0 1 (0-2.5) % Neut # (Auto) 9.8 H 6.9 (1.8-7.7) Thou/mm3 Lymph # (Auto) 2.1 1.8 (1.0-4.8) Thou/mm3 [place] # (Auto) 1.1 H 1.0 H (0.0-0.8) Thou/mm3 Eos # (Auto) 0.1 0.2 (0.0-0.5) Thou/mm3 Baso # (Auto) 0.0 0.1 (0.0-0.2) Thou/mm3 Immature Gran # (Auto) 0.05 H 0.03 H (0.00-0.00) Thou/mm3 Absolute Nucleated RBC 0.00 0.00 (0.00-0.00) Thou/mm3 Immature Gran % 0 0 (0-0) % Nucleated RBC % 0 0 (0) /100 WBC Sodium 137 (136-145) mMol/L Potassium 3.3 L (3.4-5.1) mMol/L Chloride 98 (98-107) mMol/L Carbon Dioxide 28.2 (20.0-31.0) mMol/L Anion Gap 11 (7-16) BUN 12 (9-23) mg/dL Creatinine 0.7 (0.6-1.3) mg/dL Estim Creat Clear Calc 91.8 (>60) mL/min eGFR > 60 (60 - ) See Note BUN/Creatinine Ratio 17 (12-20) Ratio Glucose 95 (74-106) mg/dL Calculated Osmolality 273 L (275-295) Calcium 9.7 (8.3-10.6) mg/dL Corrected Calcium 9.7 (8.5-10.1) mg/dL Total Bilirubin 0.7 (0.3-1.2) mg/dL AST 20 (0-34) U/L ALT 34 (10-49) U/L Alkaline Phosphatase 77 (46-116) U/L Total Protein 7.1 (5.7-8.2) gm/dL Albumin 4.5 (3.4-4.8) gm/dL Globulin 2.6 (2.3-3.5) gm/dL Albumin/Globulin Ratio 1.7 (1.2-2.2) Lipase 51 (12-53) U/L Ur Collection Type Clean Catch Urine Color Yellow (Lt Yel-Yel) Urine Clarity Turbid A (Clear/Hazy) Urine pH 6.0 (5.0-7.0) Ur Specific [place] 1.016 (1.001-1.035) Urine Protein Trace (Neg - Trace) Urine Glucose (UA) Negative (Negative) Urine Ketones 3+ A (Negative) Urine Blood Negative (Negative) Urine Nitrite Negative (Negative) Urine Bilirubin Negative (Negative) Urine Urobilinogen (Auto) 2.0 (0.0-1.0) mg/dL Ur Leukocyte Esterase Negative (Negative) Urine RBC 1 (0-3) /hpf Urine WBC 2 (0-5) /hpf Ur Squamous Epith Cells 22 H (0-5) /hpf Urine Bacteria Rare (None) Hyaline Casts < 1 (0-1) /hpf Discharge Plan Plan Patient Disposition: HOME (Self Care) Patient condition on transfer: Stable Prescriptions/Referrals Prescriptions/Med Rec: New ciprofloxacin HCl [Cipro] 500 mg tablet 500 mg PO BID Qty: 14 0RF meloxicam 7.5 mg tablet 7.5 mg PO QDAY Qty: 10 0RF No Action nicotine 14 mg/24 hr Patch 24 Hour 14 mg top QDAY 30 Days Qty: 28 0RF trazodone 50 mg Tablet 50 mg PO HS PRN (Reason: insomnia) 30 Days Qty: 30 0RF ketorolac 10 mg tablet 10 mg PO Q6H 7 Days Qty: 28 0RF Rx Instructions: maximum total duration of 5 days from all oral, intranasal, or parenteral formulations Referrals: Macho Greenfield PA-C [Primary Care Provider] - In 1 week Padmini Mosqueda MD [Physician] - In 1 week Problem List Clinical Impression: Right upper quadrant abdominal pain Patient/Caregiver Discharge Instructions Education Materials: Abdominal Pain Additional Instructions: Take the medications as prescribed follow-up with Dr. Mosqueda if there is worsening of symptoms return the emergency room for reevaluation. Print Language: Pakistani Stand Alone Forms: Luciana Award Info., Patient Portal Info Letter, Work/School Release PA/LINE SERVICE SUPERVISOR Supervising Physician PA/LINE SERVICE SUPERVISOR Supervising Physician: Cristofer Martinez ENP
[2024-09-03] MEDS: SODIUM CHLORIDE 0.9% 500 ML 500 ML 999 ML IV (18:04)
[2024-09-03] MEDS: MORPHINE SULF INJ 10 MG/ML VIAL 4 MG IVP (18:04)
[2024-09-03] MEDS: ONDANSETRON INJ 2 MG/ML INJ 2 ML 4 MG IV (18:05)
[2024-09-03] MEDS: SODIUM CHLORIDE 0.9% 1000 ML 1,000 ML 75 ML IV (18:41)
[2024-09-03] MEDS: oxyCODONE/APAP 5/325 TABLET 2 TAB PO (21:07)
--- NOTE | 2024-09-03 23:43 | EDNOTE_ITS ---
Emergency Room Addendum Addendum Narrative: 2300 Care assumed from Cristofer Martinez NP. Past medical, surgical, social and family history reviewed. Vitals and home medications reviewed. Results and treatment plan discussed. I will assume the care of the patient at this time and will follow the patient, pending HIDA scan. Please refer to the emergency department record for history and examination from initial visit. The following addendum documentation note is intended to reflect any pending information, findings, or radiology results not included in the patient?s initial chart. 0600 Care signed out to [facility] provider. Past medical, surgical, social and family history reviewed. Vitals and home medications reviewed. Results and treatment plan discussed. I will assume the care of the patient at this time and will follow the patient, pending HIDA scan. MD Attestation MD Attestation Scribe Attestation: I, Luana Berry, am scribing for and in the presence of Dr. Rose. Provider Notation: Although this document has been carefully reviewed, there may still be some phonetic and other typographical errors. These errors are purely grammatical due to imperfections in the software program and should not be construed in any way to compromise the substance of the patient's medical care during this visit.
[2024-09-04] VITALS (17 sets, daily range): BP systolic 113–148; BP diastolic 71–96; PULSE 72–89; RESP 17–19; TEMP 36.6–37; O2SAT 92–96
[2024-09-04] MEDS: ONDANSETRON INJ 2 MG/ML INJ 2 ML 4 MG IV (02:01)
[2024-09-04] MEDS: MORPHINE SULF INJ 10 MG/ML VIAL 5 MG IVP (02:04)
[2024-09-04] MEDS: HYDROmorphone INJ 2 MG/ML VIAL 1 MG IVP ×3 (07:25→15:32)
--- NOTE | 2024-09-04 07:29 | XR_ITS ---
Examination: Nuclear medicine hepatobiliary scan, static HIDA scan Date of exam: September 04, 2023 at 1310 hrs. Indications: Cholecystectomy, onset today right upper epigastric pain and tenderness Technique And Findings: 5.3 mCi 99m Hepatolite administered intravenously. Serial imaging obtained immediately through 60 minutes. Homogenous uptake in the liver. Common bile duct small bowel activity noted no gallbladder activity Impression: No common bile duct obstruction, isotope in the common hepatic common bile duct and small bowel
--- NOTE | 2024-09-04 11:34 | PD.EDADDENDU ---
Emergency Room Addendum Addendum Narrative: At 6 AM on 09/04/2024, the care of the patient was transferred to me from Dr. ANDREWS, see previous notes for complete H&P and ED course. At 11 AM on 09/04/2024, the care of the patient was transferred to Cristofer Martinez NP. During my watch, the patient remained stable. Hernandez Luis MD
[2024-09-04 16:53] LABS: Basophils # (Auto) 0.1 Thou/mm3 (0.0-0.2); Basophils % (Auto) 1 % (0-2.5); Eosinophils # (Auto) 0.2 Thou/mm3 (0.0-0.5); Eosinophils % (Auto) 2 % (0-10); Hematocrit 42.5 % (36.0-46.0); Hemoglobin 14.2 g/dL (12.0-16.0); Immature Granulocytes % (Auto) 0 % (0-0); Immature Granulocytes Auto 0.03 Thou/mm3 (0.00-0.00); Lymphocytes # (Auto) 1.8 Thou/mm3 (1.0-4.8); Lymphocytes % (Auto) 18 % (10-50); Mean Corpuscular HGB Conc 33.4 g/dl (31.0-37.0); Mean Corpuscular Hemoglobin 31.6 pg (25.0-35.0); Mean Corpuscular Volume 94 fL (80-100); Monocytes % (Auto) 10 % (0-12); Neutrophils # (Auto) 6.9 Thou/mm3 (1.8-7.7); Neutrophils % (Auto) 69 % (37-80); Nucleated Red Blood Cell % 0 /100 WBC (0); Platelet Count 310 Thou/mm3 (140-440); RDW Standard Deviation 50.4 fL (36.4-46.3)
[2024-09-04 17:36] LABS: Alanine Aminotransferase 32 U/L (10-49); Albumin, Serum 3.7 gm/dL (3.4-4.8); Albumin/Globulin Ratio 1.6 (1.2-2.2); Anion Gap 9 (7-16); Aspartate Amino Transferase 23 U/L (0-34); BUN/Creatinine Ratio 24 Ratio (12-20); Bilirubin,Total 0.5 mg/dL (0.3-1.2); Blood Urea Nitrogen 12 mg/dL (9-23); Calcium 8.8 mg/dL (8.3-10.6); Carbon Dioxide 29.2 mMol/L (20.0-31.0); Chloride 101 mMol/L (98-107); Creatinine (Component) 0.5 mg/dL (0.6-1.3); Estimated Creatinine Clearance 128.5 mL/min (>60); Globulin 2.3 gm/dL (2.3-3.5); Glucose 79 mg/dL (74-106); Osmolality,Calculated 276 (275-295); Potassium 3.5 mMol/L (3.4-5.1); Sodium 139 mMol/L (136-145); eGFR > 60 See Note
[2024-09-04] MEDS: CIPROFLOXACIN HCL 250 MG TABLET 500 MG PO (18:15)
[2024-09-04 20:42] LABS: Alkaline Phosphatase 64 U/L (46-116)
== END 2024-09-04 19:06 | disposition home or self-care (01) ==
PROVIDERS: Nurse Practitioner Family; Registered Nurse General Practice; Emergency Provider Emergency Medicine; PCP Physician Assistant
DX: K91.5 Postcholecystectomy syndrome (principal); N85.8 Other specified noninflammatory disorders of uterus; Y83.8 Other surgical procedures as the cause of abnormal reaction of the patient, or of later complication, without mention of misadventure at the time of the procedure
CPT/HCPCS: 36415; 74176; 78227; 80053; 81001; 83690; 85025; 87077; 87086; 87186; 96361; 96374; 96375; 99284; A9537; J2270; J2405; J3490; J7030; J7040; Q0162; A9270

== ENCOUNTER → 2024-11-23 | Outpatient (CLI) | payer MEDICAID, SELFPAY ==
--- NOTE | 2024-11-23 12:45 | XR_ITS ---
Examination: Breast ultrasound, unilateral, left Date and time of exam: November 23, 2024 1300 hours INDICATIONS: Focal asymmetry left breast on outside mammogram left breast pain 6 months Technique: Real-time esteban scale ultrasonographic imaging performed left breast including all 4 quadrants as well as nipple retroareolar and axillary region. Findings: 3:00 cyst 8 x 9 mm 3:00 nodule 7 x 7 mm Retroareolar cyst 3 x 3 mm IMPRESSION: BI-RADS Category 3: Probably benign findings One additional 6 month left breast sonogram follow-up is needed to document stability of 3:00 nodule described above
--- NOTE | 2024-11-23 13:15 | XR_ITS ---
Examination: Diagnostic digital mammography, unilateral, left Computer aided detection 3-D breast Tomosynthesis, unilateral Date and time of exam: November 23, 2024 1332 hours INDICATIONS: Mammogram May 31, 2024 17 mm focal asymmetry 3:00 position left breast Technique: Nonmagnified MLO, CC views of the left breast have been obtained, reconstructed from 3-D Tomosynthesis images. R2 computer aided detection program utilized for evaluation of suspicious masses and/or abnormal calcifications. 3-D Tomosynthesis images obtained. Findings: Scattered areas of fibroglandular density. 3:00 nodule circumscribed 7 mm Impression: BI-RADS category 3: Probably benign findings 6 month bilateral mammography follow-up needed
== END | disposition home or self-care (01) ==
LOC: CDIM 12:48
PROVIDERS: PCP Family Medicine; Referring Provider Family Medicine; Visit Provider Family Medicine
DX: R92.332 Mammographic heterogeneous density, left breast (principal); R92.8 Other abnormal and inconclusive findings on diagnostic imaging of breast; N63.25 Unspecified lump in the left breast, overlapping quadrants
CPT/HCPCS: 76641; 77061; 77065; G0279

== ENCOUNTER 2025-04-01 15:48 | Emergency (ER) | payer MEDICAID, SELFPAY ==
[2025-04-01 15:49] VITALS: BMI 30.4
--- NOTE | 2025-04-01 15:53 | EKG_ITS ---
[facility] Test Date: 2025-04-01 Pat Name: JAMEY CERVANTES Department: Room: - Gender: Female [employer]visor [employer]: : [id number] Requested By: ED Temporary Provider Order Number: [id number] Reading MD: ED Temporary Provider Measurements Intervals Gracey Rate: 86 P: 64 WA: 160 QRS: 66 QRSD: 82 T: 74 QT: 378 QTc: 454 Interpretive Statements SINUS RHYTHM No previous ECG available for comparison /store/S0/[id number]/[id number].pdf
[2025-04-01 15:57] VITALS: BP 121/78; PULSE 88; RESP 18; TEMP 36.7; O2SAT 93
--- NOTE | 2025-04-01 16:17 | PD.EDRME ---
Rapid Medical Screening Exam [facility] Arrival date/time: 04/01/25 15:48 Chief Complaint: Chest Pain Vital signs: Vital Signs Temperature 98.0 F 04/01/25 15:57 Pulse Rate 88 04/01/25 15:57 Respiratory Rate 18 04/01/25 15:57 Blood Pressure 121/78 04/01/25 15:57 Pulse Oximetry (%) 93 L 04/01/25 15:57 Oxygen Delivery Method Room Air 04/01/25 15:57 [facility] Narrative: Chest pain since 0600 this morning, worsens with cough and inspiration. Reports mild cough, no fever.
--- NOTE | 2025-04-01 16:18 | XR_ITS ---
Examination: PA chest single view Technique: Upright PA chest single view Date and time: April 01, 2025, 1631 hrs. Indications: Chest pain today Findings: Minimal prominence left ventricle Moderate vascular congestion including central vascular engorgement Suspicious for early septal edema at the lung bases No lobar pneumonia Impression: Suspicious for early heart failure
[2025-04-01 16:40] LABS: Basophils # (Auto) 0.0 Thou/mm3 (0.0-0.2); Basophils % (Auto) 0 % (0-2.5); Eosinophils # (Auto) 0.1 Thou/mm3 (0.0-0.5); Eosinophils % (Auto) 0 % (0-10); Hematocrit 48.4 % (36.0-46.0); Hemoglobin 16.3 g/dL (12.0-16.0); Immature Granulocytes Auto 0.03 Thou/mm3 (0.00-0.00); Lymphocytes # (Auto) 2.2 Thou/mm3 (1.0-4.8); Lymphocytes % (Auto) 17 % (10-50); Mean Corpuscular HGB Conc 33.7 g/dl (31.0-37.0); Mean Corpuscular Hemoglobin 33.3 pg (25.0-35.0); Mean Corpuscular Volume 99 fL (80-100); Monocytes # (Auto) 1.1 Thou/mm3 (0.0-0.8); Monocytes % (Auto) 9 % (0-12); Neutrophils # (Auto) 9.7 Thou/mm3 (1.8-7.7); Neutrophils % (Auto) 74 % (37-80); Nucleated Red Blood Cell # 0.00 Thou/mm3 (0.00-0.00); Nucleated Red Blood Cell % 0 /100 WBC (0); Platelet Count 227 Thou/mm3 (140-440); RDW Standard Deviation 54.8 fL (36.4-46.3); Red Blood Count 4.90 Miln/mm3 (4.00-5.20); White Blood Count 13.1 Thou/mm3 (3.6-11.0)
--- NOTE | 2025-04-01 16:43 | EDNOTE_ITS ---
ED General RME/HPI General Chief complaint: Chest Pain Stated complaint: CXP/SOB TODAY, WORSE AT 0600 Time Seen by Provider: 04/01/25 16:40 Arrival date/time: 04/01/25 15:48 CC: Chest pain with radiation into the left arm HPI ongoing since she got up at 6 AM this morning most of it has subsided however the recurrence he has been only when she takes a deep breath coughs or torso rotation. Denies any history of prior to this patient continues to smoke approximately half pack a day. Patient denies shortness of breath or difficulty breathing. No prior history of similar events. RME / HPI RME / HPI narrative: Chest pain since 0600 this morning, worsens with cough and inspiration. Reports mild cough, no fever. Related Data Previous Rx's ?Medication ?Instructions ?Recorded ciprofloxacin HCl 500 mg tablet 500 mg PO BID #14 tabs 09/04/24 (Cipro) meloxicam 7.5 mg tablet 7.5 mg PO QDAY #10 tabs 08/13 11/03 Allergies Allergy/AdvReac Type Severity Reaction Status Date / Time No Known Allergies Allergy Verified 04/01/25 15:52 Review of Systems Review of Systems Narrative Review of Systems: GEN: No fever, no chills, no weight loss EYES: No discharge, no visual changes, no pain HEENT: No ear pain, no congestion, no sore throat PULM: No shortness of breath, no cough, no congestion CV: + chest pain, no dyspnea on exertion, no palpitations GI: No nausea, no vomiting, no diarrhea, no pain, no constipation : No frequency, no urgency, no dysuria MUSC/SKEL: No joint pain, no back pain SKIN: No rash PSYCH: No hallucinations, no depression HEME/LYMPH: No easy bleeding or bruising tendencies NEURO: No weakness, no headache Past Medical History Past Medical History NEUROLOGIC: Negative Seizures CARDIAC: Negative Cardiac Disorders or Congestive Heart Failure RESPIRATORY: Negative Chronic Obstructive Pulmonary Disease (COPD) or Asthma GENITOURINARY: Negative Renal Disease ENDOCRINE: Negative Diabetes Mellitus Type 1 or Diabetes Mellitus Type 2 HEMATOLOGIC: Negative Sickle Cell Disease PSYCHO/SOCIAL: Positive Bipolar Disorder and Depression OTHER HISTORY: Negative Blood Transfusions or Anesthesia Reactions Family History FAMILY HISTORY: Positive Family Cancer Social History SMOKING STATUS: Current every day smoker SUBSTANCE USE: does not use ED Exam Narrative Physical exam: [General: Not in any acute distress Head normocephalic HEENT: Within acceptable limits Neck is supple nontender Chest equal chest rise nontender to palpation Respiratory: Clear to auscultation no wheezes crackles or rubs CV: Rate rhythm is regular no murmurs rubs or clicks Abdomen is soft nontender no masses positive bowel sounds all 4 quadrants Back: No CVA tenderness no spinous process tenderness from cervical spine thoracic and lumbar spine Skin: Intact no petechiae rash induration ulceration or crepitus Extremities: Moving all extremity against resistance cap refill less than 2 seconds neurosensory intact. No lower extremity edema. Neuro: Awake alert oriented x3 Glascow coma 15 no focal deficits] Course Quality Measures none Orders Category Date Time Status EKG (ED ONLY) *Do not use* NOW Care 04/01/25 15:53 Completed CXR [XR chest 1V] Stat Exams 04/01/25 16:18 Taken EKG (ED Only) Stat Exams 04/01/25 15:53 Draft BNP [B-Type Natriuretic Peptide] Stat Lab 04/01/25 16:30 Completed CBC Stat Lab 04/01/25 16:30 Completed CMP [Comprehensive Metabolic Panel] Stat Lab 04/01/25 16:30 Completed Troponin I Stat Lab 04/01/25 16:30 Completed Vital Signs Vital signs: Vital Signs Temperature 98.0 F 04/01/25 15:57 Pulse Rate 88 04/01/25 15:57 Respiratory Rate 18 04/01/25 15:57 Blood Pressure 121/78 04/01/25 15:57 Pulse Oximetry (%) 93 L 04/01/25 15:57 Oxygen Delivery Method Room Air 04/01/25 15:57 Discharge Plan Plan Patient Disposition: HOME (Self Care) Patient condition on transfer: Stable Prescriptions/Referrals Prescriptions/Med Rec: No Action ciprofloxacin HCl [Cipro] 500 mg tablet 500 mg PO BID Qty: 14 0RF meloxicam 7.5 mg tablet 7.5 mg PO QDAY Qty: 10 0RF Referrals: Nicolasa Schulte MD [Emergency Provider, Emergency Medicine] - In 1 week Problem List Clinical Impression: Chest pain, Atypical chest pain Patient/Caregiver Discharge Instructions Education Materials: ED Chest Pain, Uncertain Cause Additional Instructions: Follow-up with your primary care provider if there is a worsening of symptoms in spite of OTC medications for pain relief return to the emergency room medially for further evaluation. Print Language: Bengali Stand Alone Forms: Luciana Award Info., Work/School Release, Patient Portal Info Letter BRIDGET/CY Supervising Physician KENDRICK Supervising Physician: Cristofer BRO Clinical Information Provided by: patient Medical Records reviewed [facility] Meds/Rx considered, not ordered None Labs/Rad/Tests considered, not ordered None Chronic Illness/Social Conditions Explain: Smoking history Labs Labs: interpreted by me Lab(s) Interpretation(s): EKG performed at 1558 shows a ventricular rate of 86 NJ interval 160 QRS of 82 QTc of 454 is a normal sinus rhythm. Compared to an old EKG of August 2024, there are no significant changes.. CBC shows a mild leukocytosis 13.1 Anemia or thrombocytopenia CMP shows no significant electrolyte imbalances renal impairment transaminitis or T. bili elevation BNP is 72 Troponin is undetectable Imaging Imaging interpretation: interpreted by me Imaging Interpretation(s): Chest x-rays interpreted me shows no acute finding that requires emergent or immediate intervention. Note: The patient has no respiratory symptoms including shortness of breath fever chills cough or productive sputum Diagnosis Differential Diagnosis ED Complaint MDM: ACS MA pneumonia
[2025-04-01 17:02] LABS: B-Type Natriuretic Peptide 72 pg/mL (0-100)
[2025-04-01 17:03] LABS: Alanine Aminotransferase 14 U/L (10-49); Albumin, Serum 4.3 gm/dL (3.4-4.8); Albumin/Globulin Ratio 2.0 (1.2-2.2); Alkaline Phosphatase 60 U/L (46-116); Anion Gap 6 (7-16); Aspartate Amino Transferase 18 U/L (0-34); BUN/Creatinine Ratio 16 Ratio (12-20); Bilirubin,Total 0.8 mg/dL (0.3-1.2); Blood Urea Nitrogen 11 mg/dL (9-23); Calcium 9.6 mg/dL (8.3-10.6); Calcium (Corrected) 9.6 mg/dL (8.5-10.1); Carbon Dioxide 30.1 mMol/L (20.0-31.0); Chloride 105 mMol/L (98-107); Creatinine (Component) 0.7 mg/dL (0.6-1.3); Estimated Creatinine Clearance 94.4 mL/min (>60); Globulin 2.2 gm/dL (2.3-3.5); Glucose 106 mg/dL (74-106); Osmolality,Calculated 280 (275-295); Potassium 4.0 mMol/L (3.4-5.1); Sodium 141 mMol/L (136-145); Total Protein 6.5 gm/dL (5.7-8.2); Troponin I < 0.002 ng/mL (0.0-0.045); eGFR > 60 See Note
== END 2025-04-01 18:12 | disposition home or self-care (01) ==
PROVIDERS: Physician Assistant; Emergency Provider Emergency Medicine; PCP Physician Assistant
DX: R07.1 Chest pain on breathing (principal); D72.829 Elevated white blood cell count, unspecified; F17.210 Nicotine dependence, cigarettes, uncomplicated
CPT/HCPCS: 36415; 71045; 80053; 83880; 84484; 85025; 93005; 99283

== ENCOUNTER 2025-04-13 13:45 | Emergency (ER) | payer MEDICAID, SELFPAY ==
[2025-04-13 13:46] VITALS: BMI 27.8
[2025-04-13 14:14] VITALS: BP 141/92; PULSE 94; RESP 18; TEMP 36.9; O2SAT 99
--- NOTE | 2025-04-13 14:18 | XR_ITS ---
Examination: Sacrum and coccyx 3 views TECHNIQUE: AP, inclined AP, lateral segment processes 3 views Date and time: April 13, 2025 1426 hours INDICATIONS: Patient fell backwards last night with injury to the sacrum, sacral pain. FINDINGS: Symmetrical sacral foramina Satisfactory alignment sacrococcygeal segments IMPRESSION: No sacral or coccygeal fracture
--- NOTE | 2025-04-13 14:18 | XR_ITS ---
Examination: Lumbar spine 3 views Technique one AP lateral coned lateral lower dorsal spine 3 views Date and time: April 13, 2025, 1425 hours INDICATIONS: Patient fell backwards last night with injury to the lower back, lower back pain. FINDINGS: Acute appearing compression fracture L3 vertebral body, reduction in height 20% Adequate alignment of this vertebral body Mild diffuse lumbar disc narrowing IMPRESSION: Acute compression fracture L3 vertebral body
[2025-04-13] MEDS: KETOROLAC INJ 60 MG/2 ML VIAL 30 MG IM (15:06)
--- NOTE | 2025-04-13 15:28 | XR_ITS ---
Examination: CT lumbar spine, without contrast. 2-D sagittal reconstructions. 2-D coronal reconstructions. 3-D reconstructions. Date and time of exam:April 13, 2025, 1542 hours INDICATIONS: Patient fell today with into the lower back, lower back pain CTDI: vol (mGy):31.2 DLP: (mGycm):1009 Technique: Multiple 1.25 mm axial sections of the lumbar spine without intravenous contrast have been obtained. 2-D sagittal and coronal reconstructions have been obtained. 3-D reconstructions have been obtained. Low dose protocols were performed. One or more of the following dose reduction techniques were used; automated exposure control, adjustment of the mA and/or KV according to patient size, use of iterative reconstruction technique. Findings: Acute fractures with depression superior endplate L3, reduction in height 20% Fractures do not involve the pedicles are laminae Satisfactory alignment lumbar vertebral bodies No focal lumbar disc protrusion IMPRESSION: Acute fractures L3 vertebral body as above
--- NOTE | 2025-04-13 15:31 | EDRME_ITS ---
Rapid Medical Screening Exam [facility] Arrival date/time: 04/13/25 13:45 65-year-old female with no known medical history presents to the emergency room with a chief complaint of 10 out of 10 lower back pain and coccyx pain after a ground-level fall that occurred last night. I have greeted and performed a focused initial assessment of this patient. A comprehensive ED assessment and evaluation of the patient, analysis of all test results, and completion of the medical decision making process will be conducted by additional ED providers. Chief Complaint: Fall Time Seen by Provider: 04/13/25 14:10 Vital signs: Vital Signs Temperature 98.5 F 04/13/25 14:14 Pulse Rate 94 04/13/25 14:14 Respiratory Rate 18 04/13/25 14:14 Blood Pressure 141/92 H 04/13/25 14:14 Pulse Oximetry (%) 99 04/13/25 14:14 Oxygen Delivery Method Room Air 04/13/25 14:14 Vital signs reviewed by provider: Yes
--- NOTE | 2025-04-13 17:24 | EDNOTE_ITS ---
ED Fall Injury RME/HPI General Chief Complaint: Fall Stated Complaint: BACK PAIN, S/P SLIPPED AND FELL Time Seen by Provider: 04/13/25 14:10 Arrival date/time: 04/13/25 13:45 RME / HPI RME / HPI Narrative: 65-year-old female patient came in for evaluation regarding ground-level fall. Patient sustained trip and fall landing on her buttock, resulting to pain to the lumbar area, and coccyx pain also. Patient denies any lower extremity weakness anesthesia saddle anesthesia incontinence both bladder and bowel. Patient is ambulatory. No LOC noted. Incident happened last night. Related Data Previous Rx's ?Medication ?Instructions ?Recorded ciprofloxacin HCl 500 mg tablet 500 mg PO BID #14 tabs 09/04/24 (Cipro) meloxicam 7.5 mg tablet 7.5 mg PO QDAY #10 tabs 08/13 11/03 ibuprofen 800 mg tablet 800 mg PO Q8H PRN pain #20 t abs 04/13/25 methocarbamol 500 mg tablet 500 mg PO BID PRN back quinton n #20 04/13/25 tabs tramadol 37.5 mg-acetaminophen 325 1 tab PO QID PRN pa in 5 days #20 04/13/25 mg tablet tabs Allergies Allergy/AdvReac Type Severity Reaction Status Date / Time No Known Allergies Allergy Verified 04/13/25 13:46 Review of Systems Review of Systems Narrative Review of Systems: Review of system reviewed and within normal limits except mentioned in HPI ED Exam Narrative Physical exam: VITAL SIGNS: Reviewed. GENERAL APPEARANCE: Alert and interactive, follows commands, no acute distress, HEAD AND FACE: Non-traumatic. ENT: PERRL, pink conjunctivitis, eyelid no trauma, Mucous membrane moist. NECK: Supple, nontender, no nuchal rigidity. ABDOMEN: Soft, positive bowel sounds, nondistended, no guarding, nontender, no rebound, no masses, RECTAL: Deferred. GENITAL: Deferred. NEUROLOGICAL: Gross motor function intact sensory function intact, Appropriate for age. MUSCULOSKELETAL: low back tenderness, positive midline tenderness on the L3 level full range of motion. EXTREMITIES: Nontender, full range of motion. SKIN: Color pink, dry, no rash, no lacerations, no abrasions, no contusions. LYMPHATICS: Deferred. Course Quality Measures none Orders Category Date Time Status CT lumbar spine wo con Stat Exams 04/13/25 15:28 Completed XR lumbar spine 2-3V Stat Exams 04/13/25 14:18 Completed XR sacrum coccyx min 2V Stat Exams 04/13/25 14:18 Completed Ketorolac Inj [Toradol Inj] Med 04/13/25 14:56 Discontinued 30 mg IM X1 ONE Vital Signs Vital signs: Vital Signs Temperature 98.5 F 04/13/25 14:14 Pulse Rate 94 04/13/25 14:14 Respiratory Rate 18 04/13/25 14:14 Blood Pressure 141/92 H 04/13/25 14:14 Pulse Oximetry (%) 99 04/13/25 14:14 Oxygen Delivery Method Room Air 04/13/25 14:14 Fall MDM Narrative MDM Narrative:: 65-year-old female patient came in for evaluation regarding ground-level fall. Patient sustained trip and fall landing on her buttock, resulting to pain to the lumbar area, and coccyx pain also. Patient denies any lower extremity weakness anesthesia saddle anesthesia incontinence both bladder and bowel. Patient is ambulatory. No LOC noted. Incident happened last night. CT scan of the lumbar spine showed L3 compression fracture with a reduction of height about 20%, there is no involvement of the lamina or pedicle. There is no retropulsion of the fragment. This type of fracture is stable. Patient was advised to follow-up with PCP and for referral to spine surgeon as needed. I also told him to buy lumbar brace which we do not have at this time. Patient is stable for discharge home Precaution for lumbar spine fracture given and instructed patient agrees with the plan. Patient data External records reviewed:: None Clinical information provided by:: none Social determinants that could affect healthcare access:: none Patient has the following chronic illnesses:: None How is presenting disease/condition affected by chronic disease/condition?: no chronic disease Evaluation data The following diagnostics were reviewed and interpreted by me:: radiology exam(s) Lab and/or radiology exams considered but not ordered:: None Interpretation Summary: See MDM Medications / Prescriptions Medications or Prescriptions considered but not ordered:: None Medication administrations:: Medication Administration History Discontinued Medications Ketorolac Tromethamine (Ketorolac Inj 60 Mg/2 Ml Vial) 30 mg IM X1 ONE Stop: 04/13/25 14:57 Last Admin: 04/13/25 15:06 Dose: 30 mg Documented By: Toradol IM Consultations Consultation(s) initiated? (list below): No Diagnosis Fall Differential Diagnosis: other (Fall, compression fracture L3, sacral contusion) Most likely diagnosis given after review of the tests above:: Fall, compression fracture L3, stable Admission Indicated Admission indicated?: not indicated Admission Request Was there a request for admission?: No Disposition Plan Disposition Plan: Discharge Discharge Attestation Discharge Attestation: The patient wasv given an opportunity to ask questions and understood the dis charge instructions. Discharge instructions specifically effects, indications for sooner follow up or return to the emergency department, and the expected course of current diagnosis. Patient condition: Stable Discharge Plan Plan Patient Disposition: HOME (Self Care) Discharge Disposition comment: Stable Prescriptions/Referrals Prescriptions/Med Rec: New methocarbamol 500 mg tablet 500 mg PO BID PRN (Reason: back pain) Qty: 20 0RF ibuprofen 800 mg tablet 800 mg PO Q8H PRN (Reason: pain) Qty: 20 0RF tramadol-acetaminophen 37.5-325 mg tablet 1 tab PO QID PRN (Reason: pain) 5 Days Qty: 20 0RF No Action ciprofloxacin HCl [Cipro] 500 mg tablet 500 mg PO BID Qty: 14 0RF meloxicam 7.5 mg tablet 7.5 mg PO QDAY Qty: 10 0RF Referrals: Kristie Arriaza PA-C [Primary Care Provider] - In 1 week Problem List Clinical Impression: Closed compression fracture of L3 vertebra Patient/Caregiver Discharge Instructions Discharge Activity: activity as tolerated Education Materials: Back Safety Bed, Back Safety: Bending Additional Instructions: Thank you for the opportunity for serving you today. You are stable for dischar [facility] . You are advised to: Follow-up with your PCP in 1 to 2 days and asked for referral to spine surgeon as needed CT scan of your lumbar spine showed compression fracture of your L3 however it is a stable there is no retropulsion fragment to your spinal canal. Return to ED for worsening of symptoms Increase oral fluids Take medication as prescribed Wear a back brace as instructed that you can buy online. Or maybe in [employer] Print Language: Pakistani Stand Alone Forms: Luciana Award Info., Patient Portal Info Letter BRIDGET/CY Supervising Physician BRIDGET/CY Supervising Physician: MD Teoiflo
== END 2025-04-13 18:00 | disposition home or self-care (01) ==
PROVIDERS: Emergency Provider Family Medicine; PCP Physician Assistant
DX: S32.030A Wedge compression fracture of third lumbar vertebra, initial encounter for closed fracture (principal); W18.30XA Fall on same level, unspecified, initial encounter
CPT/HCPCS: 72100; 72131; 72220; 96372; 99284; J1885; A9270